=== PATIENT | male | born 1950 | race Caucasian/White ===

== ENCOUNTER 2017-10-03 20:34 | Observation (INO) ==
[2017-10-03] MEDS ORDERED: 0.9 % Sodium Chloride 1,000 ML IVC ONE (21:03)
[2017-10-03] MEDS ORDERED: Ondansetron 4 MG/2 ML VIAL IVP STA (21:09)
--- NOTE | 2017-10-03 21:16 | Emergency Department Note ---
Disposition Clinical Impression: Generalized weakness Nausea & vomiting Qualifiers: Vomiting type: unspecified Vomiting Intractability: unspecified Qualified Code( s): R11.2 - Nausea with vomiting, unspecified Disposition: Admitted As Inpatient Condition: Good Referrals: Cuco Wilson MD [Primary Care Provider] - Forms: ED Satisfaction Letter General Adult HPI - General Chief complaint: ED Nausea/Vomiting/Diarrhea Stated complaint: "dizzy, n/v" Source: EMS Mode of arrival: ambulatory Limitations: no limitations Nursing Notes Reviewed: Yes Vital Signs Reviewed: Yes - History of Present Illness HPI Narrative: Patient has a past medical history of lung cancer with lesions on the liver and pancreas. Patient is currently undergoing chemotherapy with last treatment on Saturday. Patient has been on chemotherapy for 2 years without reaction to chemotherapy agent. Patient also has myasthenia gravis and is unable to take standard medications. He gets IV Ig every 3 months as well as 10 mg of prednisone daily. Patient symptoms started today before lunch. Patient states tolerated breakfast fine. Leg down to take a nap and awoke with nausea, several episodes of nonbloody nonbilious vomiting and dizziness. Dizziness worse with standing and moving. Patient complains of diffuse weakness that is worse in the lower extremities. Patient describes abdominal pain as diffuse cramping but no specific tenderness. No pain with urination cough. Patient is on 2 L of nasal cannula in the emergency department does not wear home oxygen. Patient states he has not been dyspneic or have a cough. No dysuria. No fevers. Pain Scale: 0 - Related Data Home Medications Medication Instructions Recorded Confirmed Citalopram Hydrobromide 40 mg PO DAILY 01/28/17 10/01/17 [Citalopram HBr] Gabapentin [Neurontin] 300 mg PO TID 01/28/17 10/01/17 Metformin HCl [Fortamet] 1,000 mg PO DAILY 01/28/17 10/01/17 Multivit-Min/FA/Lycopen/Lutein 1 each PO DAILY 01/28/17 10/01/17 [Centrum Silver Tablet] SitaGLIPtin [Januvia] 100 mg PO DAILY 01/28/17 10/01/17 predniSONE [PredniSONE] 10 mg PO DAILY 06/10/17 10/01/17 Previous Rx's Medication Instructions Recorded Magic Mouthwash 5 ml PO Q4H PRN #240 ml 08/06/17 Capecitabine [Xeloda] 1 tab PO BID #20 tablet 10/01/17 Ondansetron HCl [Zofran] 4 mg PO Q6H PRN #60 tablet 10/01/17 Allergies Allergy/AdvReac Type Severity Reaction Status Date / Time azathioprine [From Imuran] AdvReac Fatigued Verified 10/01/17 08:37 Review of Systems: CONSTITUTIONAL: No weight loss, fever, chills, weakness or fatigue. HEENT: Eyes: No visual changes. Ears, Nose, Throat: No hearing loss, difficulty talking or unable to swallow. SKIN: No rash or itching. CARDIOVASCULAR: No chest pain, chest pressure or chest discomfort. No palpitations or edema. RESPIRATORY: No shortness of breath, cough or sputum. GASTROINTESTINAL: Nausea and vomiting; No anorexia or diarrhea. No abdominal pain or blood. GENITOURINARY: No burning on urination or hematuria. NEUROLOGICAL: Weakness No headache, dizziness, syncope, paralysis, ataxia, numbness or tingling in the extremities. No change in bowel or bladder control. MUSCULOSKELETAL: No muscle pain, back pain, joint pain or stiffness. Past Medical History - Past Medical History Medical history: Reports: cancer, diabetes, hyperlipidemia, other Surgical history: Reports: colectomy Psychiatric history: Reports: no psych history - Social History Smoking Status: Former smoker Smokeless Tobacco Status: No Alcohol use: Reports: none Drug use: Reports: none Physical Exam General: Well appearing, nontoxic, no acute distress Head: Normocephalic Atraumatic Eyes: PERRL, EOMI ENT: Airway patent, no stridor Neck: supple, no meningismus Chest: Lungs clear to auscultation bilateral Cardiac: Regular rate and rhythm, no murmurs, rubs or gallops Abdomen: soft, nontender, nondistended; no guarding, rebound, or tenderness to percussion Musculoskeletal: Calves symmetric, nontender, no palpable cord Skin: No rash, normal skin tone Neuro: Alert and Oriented to person, place, and time; No focal deficit, CN 2-12 symmetric and intact; muscle strength out of 5 to the upper extremities. Patient's lower extremities 4 out of 5 with generalized weakness. - General General appearance: alert Course - Reevaluation(s) Reevaluation #1: Patient's lab work is unremarkable. The patient's chest x-ray has concern for possible effusion. We will do a CT to rule out empyema. CT scan does not show empyema. Increase in nodule size. Concern for worsening metastatic disease. Patient does have myasthenia. His negative inspiratory force is 60. Patient does not have myasthenia crisis. Patient may benefit from stress dose steroids as he is chronically on steroids. Will discuss with hospital team in regards to further treatment plan. Patient will need to be brought into the hospital for further evaluation of weakness as well as nausea and vomiting. - Consultations Consultation #1: Discussed with hospitalist. Concern for weakness which may be due secondary to chemotherapy, viral illness, myasthenia. The patient has blood cultures and urine culture pending. The hospitalist agrees with stress dose steroids. Hydrocortisone 100 mg once. Patient accepted for admission. Vital Signs Temperature 99.0 F 10/03/17 20:36 Pulse Rate 64 10/03/17 20:36 Respiratory Rate 16 10/03/17 20:36 Blood Pressure 154/98 10/03/17 20:36 O2 Sat by Pulse Oximetry 96 10/03/17 20:36 Temperature 99.0 F 10/03/17 20:36 Pulse Rate 57 10/03/17 22:36 Respiratory Rate 15 10/03/17 22:36 Blood Pressure 167/91 10/03/17 22:36 O2 Sat by Pulse Oximetry 96 10/03/17 22:36 Oxygen Delivery Oxygen Delivery Room Air Medical Decision Making - Lab Data Result diagrams: 10/03/17 21:19 10/03/17 21:19 Lab Results 10/03/17 10/03/17 10/03/17 Range/Units 21:19 21:19 21:19 WBC 7.3 (4.3-11.1) K/mcL RBC 4.20 (4.19-5.50) M/mcL Hgb 13.3 (12.9-16.9) g/dL Hct 40.3 (37.5-50.1) % MCV 96.0 (83.0-100.0) fL MCH 31.7 (28.0-33.3) pg MCHC 33.0 (31.6-35.5) g/dL RDW 12.5 (11.5-14.5) % Plt Count 179 (140-400) K/mcL MPV 10.4 (9.4-12.4) fL Immature Gran % 0.1 (0-4) % Seg Neutrophils % 64.3 % Lymphocytes % 23.5 % Monocytes % 11.7 % Eosinophils % 0.1 % Basophils % 0.3 % Neutrophils # 4.7 (1.6-8.9) K/mcL Lymphocytes # 1.7 (0.6-4.6) K/mcL Monocytes # 0.9 (0.0-1.3) K/mcL Eosinophils # 0.0 (0.0-0.6) K/mcL Basophils # 0.0 (0.0-0.2) K/mcL Sodium 137 (136-145) mEq/L Potassium 4.1 (3.5-5.1) mEq/L Chloride 105 (98-107) mEq/L Carbon Dioxide 23 (23-29) mEq/L BUN 18 (8-23) mg/dL Creatinine 0.86 (0.70-1.30) mg/dL Est GFR ( Amer) > 60 (> 60) Est GFR (Non-Af Amer) > 60 (> 60) BUN/Creatinine Ratio 21 (6-26) Glucose 158 H (70-105) mg/dL Calculated Osmolality 289 (280-300) Lactic Acid 2.0 (0.5-2.2) mmol/L Calcium 9.0 (8.6-10.3) mg/dL Phosphorus 2.5 L (2.7-4.5) mg/dL Magnesium 1.9 (1.6-2.6) mg/dL Total Bilirubin 0.7 (0.3-1.0) mg/dL Direct Bilirubin 0.2 (0.0-0.2) mg/dL Indirect Bilirubin 0.5 (0.0-1.2) mg/dL AST 24 (13-39) Units/L ALT 26 (7-52) Units/L Alkaline Phosphatase 100 (34-104) Units/L Troponin I (< 0.04) ng/mL Serum Total Protein 6.6 (6.4-8.9) g/dL Albumin 3.6 (3.5-5.7) g/dL Globulin 3.0 (2.4-3.5) g/dL Albumin/Globulin Ratio 1.2 (1.1-2.2) Urine Color (Yellow) Urine Clarity (Clear) Urine pH (5.0-8.0) pH Units Ur Specific [place] (1.010-1.025) Urine Protein (Neg-Trace) mg/dL Urine Glucose (UA) (Normal) mg/dL Urine Ketones (Negative) mg/dL Urine Blood (Negative) Urine Nitrite (Negative) Urine Bilirubin (Negative) Urine Urobilinogen (Normal) mg/dL Ur Leukocyte Esterase (Negative) Ur Culture Indicated? (NO) 10/03/17 10/03/17 Range/Units 21:19 21:43 WBC (4.3-11.1) K/mcL RBC (4.19-5.50) M/mcL Hgb (12.9-16.9) g/dL Hct (37.5-50.1) % MCV (83.0-100.0) fL MCH (28.0-33.3) pg MCHC (31.6-35.5) g/dL RDW (11.5-14.5) % Plt Count (140-400) K/mcL MPV (9.4-12.4) fL Immature Gran % (0-4) % Seg Neutrophils % % Lymphocytes % % Monocytes % % Eosinophils % % Basophils % % Neutrophils # (1.6-8.9) K/mcL Lymphocytes # (0.6-4.6) K/mcL Monocytes # (0.0-1.3) K/mcL Eosinophils # (0.0-0.6) K/mcL Basophils # (0.0-0.2) K/mcL Sodium (136-145) mEq/L Potassium (3.5-5.1) mEq/L Chloride (98-107) mEq/L Carbon Dioxide (23-29) mEq/L BUN (8-23) mg/dL Creatinine (0.70-1.30) mg/dL Est GFR ( Amer) (> 60) Est GFR (Non-Af Amer) (> 60) BUN/Creatinine Ratio (6-26) Glucose (70-105) mg/dL Calculated Osmolality (280-300) Lactic Acid (0.5-2.2) mmol/L Calcium (8.6-10.3) mg/dL Phosphorus (2.7-4.5) mg/dL Magnesium (1.6-2.6) mg/dL Total Bilirubin (0.3-1.0) mg/dL Direct Bilirubin (0.0-0.2) mg/dL Indirect Bilirubin (0.0-1.2) mg/dL AST (13-39) Units/L ALT (7-52) Units/L Alkaline Phosphatase (34-104) Units/L Troponin I < 0.03 (< 0.04) ng/mL Serum Total Protein (6.4-8.9) g/dL Albumin (3.5-5.7) g/dL Globulin (2.4-3.5) g/dL Albumin/Globulin Ratio (1.1-2.2) Urine Color Yellow (Yellow) Urine Clarity Clear (Clear) Urine pH 7.5 (5.0-8.0) pH Units Ur Specific [place] 1.016 (1.010-1.025) Urine Protein Negative (Neg-Trace) mg/dL Urine Glucose (UA) 250 H (Normal) mg/dL Urine Ketones Negative (Negative) mg/dL Urine Blood Negative (Negative) Urine Nitrite Negative (Negative) Urine Bilirubin Negative (Negative) Urine Urobilinogen Normal (Normal) mg/dL Ur Leukocyte Esterase Negative (Negative) Ur Culture Indicated? NO (NO)
[2017-10-03 21:30] LABS: Basophils % 0.3 %; Eosinophils % 0.1 %; Hematocrit 40.3 % (37.5-50.1); Hemoglobin 13.3 g/dL (12.9-16.9); Immature Granulocytes % 0.1 % (0-4); Lymphocytes # 1.7 K/mcL (0.6-4.6); Lymphocytes % 23.5 %; Mean Corpuscular Hemoglobin 31.7 pg (28.0-33.3); Mean Platelet Volume 10.4 fL (9.4-12.4); Monocytes # 0.9 K/mcL (0.0-1.3); Monocytes % 11.7 %; Neutrophils # 4.7 K/mcL (1.6-8.9); Platelet Count 179 K/mcL (140-400); Red Cell Distribution Width 12.5 % (11.5-14.5); Segmented Neutrophils % 64.3 %
[2017-10-03 21:45] LABS: Alanine Aminotransferase 26 Units/L (7-52); Albumin 3.6 g/dL (3.5-5.7); Albumin/Globulin Ratio 1.2 (1.1-2.2); Alkaline Phosphatase 100 Units/L (34-104); Aspartate Amino Transferase 24 Units/L (13-39); BUN/Creatinine Ratio 21 (6-26); Bilirubin,Direct 0.2 mg/dL (0.0-0.2); Bilirubin,Indirect 0.5 mg/dL (0.0-1.2); Bilirubin,Total 0.7 mg/dL (0.3-1.0); Blood Urea Nitrogen 18 mg/dL (8-23); Carbon Dioxide 23 mEq/L (23-29); Chloride 105 mEq/L (98-107); Glucose 158 mg/dL (70-105); Magnesium 1.9 mg/dL (1.6-2.6); Osmolality,Calculated 289 (280-300); Phosphorous 2.5 mg/dL (2.7-4.5); Potassium 4.1 mEq/L (3.5-5.1); Sodium 137 mEq/L (136-145); Total Protein 6.6 g/dL (6.4-8.9); eGFR For African Americans > 60 (> 60); eGFR For Non-African Americans > 60 (> 60)
[2017-10-03 21:52] LABS: Bilirubin,Urine Negative (Negative); Blood,Urine Negative (Negative); Clarity,Urine Clear (Clear); Color,Urine Yellow (Yellow); Glucose,Urine (UA) 250 mg/dL (Normal); Ketones,Urine Negative (Negative); Leukocyte Esterase,Urine Negative (Negative); Nitrite,Urine Negative (Negative); PH,Urine 7.5 pH Units (5.0-8.0); Protein,Urine Negative (Neg-Trace); Specific Gravity,Urine 1.016 (1.010-1.025); Urobilinogen,Urine Normal (Normal)
[2017-10-04] MEDS ORDERED: 0.9 % Sodium Chloride 1,000 ML IVC SCH
[2017-10-04] MEDS ORDERED: Hydrocortisone Sodium Succ 100 MG/2 ML VIAL IVP STA
--- NOTE | 2017-10-04 00:11 | Emergency Department Note ---
START Narrative - START START: I examined this patient and my medical decision-making was reviewed with the Resident Physician. I agree with the documented findings, disposition and treatment plan as described except to the extent set forth below. findings consistent with dizziness. No evidence of reduced lung volumes on and I asked testing. CT scan shows ongoing metastatic disease. We will admit to the hospital giving answer for lower extremity weakness. Cannot exclude early mycin in crisis. The patient has multiple allergies. Defer further testing and steroid administration versus immunoglobulin therapy to hospitalist team.
[2017-10-04] MEDS ORDERED: Naloxone 0.4 MG/ML INJ IVP PRN (03:20)
--- NOTE | 2017-10-04 04:19 | Internal Med History&Physical ---
<Kurtis Trent - Last Filed: 10/04/17 04:17> Date of Encounter: 10/04/17 Time of Encounter: 03:00 Assessment and Plan (1) Generalized weakness Current visit: Yes Status: Acute Myasthenic crisis vs adrenal insufficiency vs malignancy-related see associated diagnoses for plan (2) Type 2 diabetes mellitus Current visit: Yes Status: Chronic Controlled Low dose sliding scale Qualifiers: Diabetes mellitus complication status: without complication Diabetes mellitus ocean transportation intermediary insulin use: without ocean transportation intermediary use Qualified Code(s): E11.9 - Type 2 diabetes mellitus without complications (3) Myasthenia gravis Current visit: Yes Status: Chronic Pt receives IVIg q3 mo Weakness could potentially be related to myasthenic crisis Will monitor negative inspiratory force qShift If decrease is noted, threshold for intubation is low Patient felt improvement following steroid administration, continue solu-cortef (4) 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 Smith is a 66 year old male presenting with dizziness and nausea with two episodes of vomiting. Initial dizziness started this morning and was associated with tremulousness. Patient initially attributed this to his blood sugar and ate a meal shortly afterward, and his symptoms abated. Later in the day, around 6 pm, the dizziness returned. He then became nauseous and vomited. Patient states that the vomitus was food only without blood. Shortly afterward, he vomited again, this time he states that it was bilious. He then began to experience weakness so severe that he could not raise himself off the ground. It was at this point that he called EMS and was brought to the ER. He received a dose of solumedrol and 1L of normal saline, and he reports vast improvement in symptoms. He denies any SOB, CP, palpitations, and diarrhea. Patient does have metastatic rectal cancer, with mets to the lungs and liver, which is being treated with xeloda. Last dose was on Saturday, and the patient says that he has been taking it for years. Other past medical history includes diabetes mellitus type II and myasthenia gravis, which is being treated with IVIG q3 mo. Past Med Surg Social Fam HX - Past Medical History Medical history: cancer, diabetes, hyperlipidemia, other Psychiatric history: no psych history - Past Surgical History Surgical History: colectomy - Social History Smoking Status: Former smoker Smokeless Tobacco Status: No Alcohol use: none Drug use: none Internal Medicine - H&P: Meds Citalopram Hydrobromide [Citalopram HBr] 40 mg PO DAILY 01/28/17 [History] Gabapentin [Neurontin] 300 mg PO TID 01/28/17 [History] Metformin HCl [Fortamet] 1,000 mg PO DAILY 01/28/17 [History] Multivit-Min/FA/Lycopen/Lutein [Centrum Silver Tablet] 1 each PO DAILY 01/28/17 [History] SitaGLIPtin [Januvia] 100 mg PO DAILY 01/28/17 [History] predniSONE [PredniSONE] 10 mg PO DAILY 06/10/17 [History] Magic Mouthwash 5 ml PO Q4H PRN #240 ml 08/06/17 [Rx] Capecitabine [Xeloda] 1 tab PO BID #20 tablet 10/01/17 [Rx] Ondansetron HCl [Zofran] 4 mg PO Q6H PRN #60 tablet 10/01/17 [Rx] 3 Allergy/AdvReac Type Severity Reaction Status Date / Time azathioprine [From Imuran] AdvReac Fatigued Verified 10/01/17 08:37 All Systems PM: A 10-system review of systems was performed and is negative for pertinent findings except as documented above in the HPI. Review of systems: as per HPI - Constitutional Vitals: Temp Pulse Resp BP Pulse Ox 97.4 F L 63 15 145/79 96 10/04/17 02:28 10/04/17 02:28 10/04/17 02:28 10/04/17 02:28 10/04/17 02:28 General appearance: Present: cooperative, A&O X 3, pleasant, answers questions appropriately - Head Head exam: Present: atraumatic, normal inspection, normocephalic - ENT ENT exam: Present: mucous membranes moist - Neck Neck exam general surgery: Present: trachea midline - Respiratory Respiratory exam: Present: CTAB. Absent: accessory muscle use, respiratory distress, stridor, wheezes - Cardiovascular Cardiovascular exam: Present: RRR, +S1, +S2 - GI/Abdominal GI/Abdominal exam: Present: soft. Absent: tenderness, no peritoneal signs - Extremities Exam Extremities exam: Absent: pedal edema - Neurological Exam Neurological exam: Present: strengths equal and symetr throughout. Absent: motor sensory deficit - Psychiatric Psychiatric exam: Present: normal affect, normal mood. Absent: agitated, anxious - Skin Skin exam: Present: dry, warm Internal Med - H&P Results - Labs CBC & Chem 7: 10/03/17 21:19 10/03/17 21:19 <Oswaldo Blackwell - Last Filed: 10/04/17 06:42> Date of Encounter: 10/04/17 Time of Encounter: 06:27 Past Med Surg Social Fam HX - Past Medical History Attestation: Yes The following information was validated with the patient. Source: patient, old records reviewed - Social History Current living situation: Home, With Family Activity Level: Independent ambulation Recent Out of Country Travel Within the Last 8 Weeks: No - Additional Family History Additional family history: No FH adrenal insufficieny - Constitutional Constitutional: fatigue, weakness, no chills, no fever(s), no night sweats - EENT Eyes: no blurry vision, no change in vision, no diplopia Ears: no ear pain, no tinnitus Nose, mouth and throat: no sinus pressure, no sore throat - Cardiovascular Cardiovascular ROS IM: lightheadedness, no chest pain, no dyspnea, no dyspnea on exertion, no palpitations - Respiratory Respiratory: no cough, no dyspnea, no hemoptysis, no chest congestion, no excessive phlegm production, no change in phlegm color - Gastrointestinal Gastrointestinal: diarrhea, nausea, vomiting, no abdominal pain, no hematemesis , no hematochezia, no melena - Genitourinary Genitourinary ROS male: no dysuria, no flank pain, no hematuria - Musculoskeletal Musculoskeletal ROS IM: muscle cramps, muscle weakness, no back pain, no myalgias - Integumentary Integumentary IM: no rash, no jaundice - Neurological Neurological ROS: dizziness, weakness, no focal weakness, no headache(s), no vertigo - Psychiatric Psychiatric: no anxiety, no depression - Endocrine Endocrine IM: no polydipsia, no polyuria - Hematologic/Lymphatic Hematologic/Lymphatic: easy bruising, no lymphadenopathy - Allergic/Immunologic Allergic/Immunologic: no wheezing, no GI upset with certain foods - Constitutional Vitals: Temp Pulse Resp BP Pulse Ox 97.4 F L 63 15 145/79 96 10/04/17 02:28 10/04/17 02:28 10/04/17 02:28 10/04/17 02:28 10/04/17 02:28 General appearance: Present: cooperative, A&O X 3, pleasant, answers questions appropriately Exam: states feels "much better" after Solumedrol and IVF - Head Head exam: Present: normal inspection - Eye Eye exam: Present: EOMI, PERRL. Absent: scleral icterus - ENT ENT exam: Present: mucous membranes dry, normal exam - Neck Neck exam general surgery: Present: full ROM, supple. Absent: tenderness - Respiratory Respiratory exam: Present: CTAB. Absent: accessory muscle use, rales, respiratory distress, stridor, wheezes Additional comments: no sign of respiratory difficulty - Cardiovascular Cardiovascular exam: Present: RRR, +S1, +S2 - GI/Abdominal GI/Abdominal exam: Present: normal bowel sounds, soft. Absent: hepatomegaly, mass, splenomegaly, tenderness - Extremities Exam Extremities exam: Present: warm. Absent: calf tenderness, joint swelling - Back Exam Back exam: Absent: CVA tenderness (L), CVA tenderness (R) - Neurological Exam Neurological exam: Present: alert, oriented X3, no focal deficits - Psychiatric Psychiatric exam: Present: normal affect, normal mood - Skin Skin exam: Present: dry, warm. Absent: rash Internal Med - H&P Results - Labs CBC & Chem 7: 10/04/17 05:57 10/03/17 21:19 Labs: Short CBC 10/04/17 Range/Units 05:57 WBC 7.2 (4.3-11.1) K/mcL Hgb 12.9 (12.9-16.9) g/dL Hct 38.2 (37.5-50.1) % Plt Count 145 (140-400) K/mcL - EKG Data -: EKG Interpreted by Myself - EKG Data Prior EKG available for review: no EKG comments: 10/04/17 06:31 NSR; no acute changes - Attending Attestation I discussed the patient KAKE, PMH, ROS, lab data, and exam findings with Dr. Trent. I then saw and examined patient independently as well. I met with patient and his . He denies any fevers or infectious symptoms. He developed sudden N/V and weakness last night. Due to near syncope after his nausea and vomiting episodes, he came to ER for evaluation. He received IVF bolus and Solumedrol with significant relief of symptoms. He was then admitted to hospitalist service for concerns of Myasthenia flare. He feels almost back to baseline now. I do not suspect he is having a Myasthenia flare, but, rather , a case of adrenal insufficiency. He is on Prednisone 10 mg daily for his Mysathenia. While he has not missed any doses, he's been under recent undue stress, mostly from his recent chemotherapy he's had. I suspect the added physical stress his body has been subjected to may have been enough to lead to a state of adrenal insufficiency, especially given the quick response he had with IVF and Solumedrol. As such, we'll place him on hydrocortisone and IVF for now. We'll ask neurology and HEM/ONC to see him in consult. We will also ask respiratory therapy to monitor his nif (negative inspiratory force) to monitor for sign of respiratory fatigue. Other than my above comments and noted exam findings, I agree with Dr. Trent' s assessment and plan.
[2017-10-04] MEDS ORDERED: Ondansetron ODT 4 MG TAB.RAPDIS SL PRN (04:44)
[2017-10-04] MEDS ORDERED: Dextrose Gel 15 GM/37.5 ML TUBE PO PRN ×2 (05:33)
[2017-10-04] MEDS ORDERED: D5% in Water 1,000 ML IVC PRN (05:33)
[2017-10-04] MEDS ORDERED: *HR* Dextrose 50 % in Water (Syg) 50 ML SYRINGE IVP PRN (05:33)
[2017-10-04] MEDS: *HR* Heparin 5,000 UNIT/ML VIAL SQ SCH ×2 (05:58→17:45)
[2017-10-04 06:11] LABS: Hematocrit 38.2 % (37.5-50.1); Hemoglobin 12.9 g/dL (12.9-16.9); Mean Corpuscular HGB Conc 33.8 g/dL (31.6-35.5); Mean Corpuscular Hemoglobin 32.7 pg (28.0-33.3); Mean Corpuscular Volume 96.7 fL (83.0-100.0); Mean Platelet Volume 9.8 fL (9.4-12.4); Platelet Count 145 K/mcL (140-400); Red Blood Count 3.95 M/mcL (4.19-5.50); Red Cell Distribution Width 12.5 % (11.5-14.5)
[2017-10-04 06:34] LABS: BUN/Creatinine Ratio 19 (6-26); Blood Urea Nitrogen 17 mg/dL (8-23); Calcium 8.6 mg/dL (8.6-10.3); Carbon Dioxide 29 mEq/L (23-29); Chloride 106 mEq/L (98-107); Glucose 175 mg/dL (70-105); Osmolality,Calculated 296 (280-300); Potassium 4.3 mEq/L (3.5-5.1); Sodium 140 mEq/L (136-145); eGFR For African Americans > 60 (> 60); eGFR For Non-African Americans > 60 (> 60)
--- NOTE | 2017-10-04 09:22 | Neurology - Consult Note ---
Addendum entered and electronically signed by Maribel Richmond MD 10/04/17 13:42: Patient seen and examined. Case discussed with Dr. Jerel Macedo and i agree with his history taking, physical examination and assessment and plan. Patient is known to me and has history of steroid dependent myasthenia Gravis, s/p thymectomy, s/p IVig therapy every 3 months. Has been doing well in the last few years with IVig treatment every three months and has been able to take only small maintenance dose of prednisone 10mg QOD and lately daily. He also has metastatic rectal cancer s/p chemotherapy last one On Saturday. He developed malaise in the last few days but no fever. then on the day of admission he developed nause and vomiting and then extreme fatigue and weakness. No fever, no SOB no diplopia and no speech difficulty. He was started IV solu-cortef and responded well and symptoms improved significantly. Agree with current regimen and would like to continue on prednisone 10mg daily without change. At this time, treatment is largely medical and supportive. He has metastatic rectal cancer and had chemotherapy which may also contribute to the weakness. OVerall speaking symptoms not consistent with MG crisis. Please continue medical and supportive care. He will follow up with me in neurology clinic in few weeks. Thank you very much for the consultation Original Note: <Jerel Macedo G - Last Filed: 10/04/17 10:16> Date of Encounter: 10/04/17 Time of Encounter: 09:18 Assessment and Plan (1) Generalized weakness Current Visit: Yes Status: Acute Patient's generalized weakness does not appear to be consistent with myasthenia crisis. He does not have any respiratory or bulbar weakness. Negative inspiratory force measurements have been excellent. Patient's symptoms may be related to adrenal insufficiency in the setting of chronic steroid use and underlying viral illness. This is supported by the fact that the patient feels much improved with stress dose steroids. Recommend close monitoring of the patient's negative inspiratory force. Avoid medications that may precipitate a myasthenia crisis including neuromuscular blocking agents, aminoglycosides, 4 quinolones, clindamycin, vancomycin, beta blockers. Patient should be slowly tapered down back to his baseline dose of prednisone 10 mg daily while monitoring for symptoms which will likely to be continued as an outpatient. Patient should continue to follow-up as scheduled in the outpatient neurology clinic. (2) Myasthenia gravis Current Visit: Yes Status: Chronic As above. (3) 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 Current Visit: Yes Status: Chronic History of Present Illness Chief complaint: Weakness HPI: Mr. Smith is a 66 year old male with history of metastatic rectal cancer and myasthenia gravis who presents with weakness. Patient states that he had not been feeling well for several days leading up to yesterday when he became extremely weak where he could not get up off the floor. He reports episodes of vomiting and dry heaves. He denies fever, chills. He states he has never had anything like this before. He denies any new medications, missing any of his medications including reporting that he takes his prednisone 10 mg daily as prescribed. He states that his voice was a little softer than normal prior to arrival but otherwise did not have any difficulty swallowing, shortness of breath, inability to take a deep breath. Past Med Surg Social Fam HX - Past Medical History Medical history: cancer, diabetes, hyperlipidemia, other Psychiatric history: no psych history - Past Surgical History Surgical History: colectomy - Social History Smoking Status: Former smoker Smokeless Tobacco Status: No Alcohol use: none Drug use: none Medications and Allergies Citalopram Hydrobromide [Citalopram HBr] 40 mg PO DAILY 01/28/17 [History] Gabapentin [Neurontin] 300 mg PO TID 01/28/17 [History] Metformin HCl [Fortamet] 1,000 mg PO DAILY 01/28/17 [History] Multivit-Min/FA/Lycopen/Lutein [Centrum Silver Tablet] 1 each PO DAILY 01/28/17 [History] SitaGLIPtin [Januvia] 100 mg PO DAILY 01/28/17 [History] Capecitabine [Xeloda] 1 tab PO BID #20 tablet 10/01/17 [Rx] Ondansetron HCl [Zofran] 4 mg PO Q6H PRN #60 tablet 10/01/17 [Rx] 3 Allergy/AdvReac Type Severity Reaction Status Date / Time azathioprine [From Imuran] AdvReac Fatigued Verified 10/01/17 08:37 All Systems: A 10-system review of systems was performed and is negative for pertinent findings except as documented above in the HPI. Physical Examination - Vital Signs Vital Signs: Initial Vital Signs Temp Pulse Resp BP Pulse Ox 99.0 F 64 16 154/98 96 01/18/18 20:36 10/03/17 20:36 10/03/17 20:36 10/03/17 20:36 10/03/17 20:36 - Constitutional General appearance: comfortable - Neurologic Sensorimotor examination: intact Motor examination - right side: 4/5: quadriceps, plantarflexion, 5/5: biceps, triceps, collections analyst Motor examination - left side: 4/5: quadriceps, plantarflexion, 5/5: biceps, triceps, collections analyst Detailed sensory examination: intact Reflexes: Biceps: 0, Brachioradialis: 0, Patella: 0, Achilles: 0 Mental Status Examination: awake, alert, oriented to person, oriented to place, oriented to time, follows commands appropriately, answers questions appropriately, no agnosia, no aphasia, no aproxia Cranial nerve examination: PERRL, EOMI, sensory to face intact, mastication intact, no facial asymmetry is present, no dysarthria, soft palate elevates bilaterally upon phonation, gag reflex intact, tongue protrudes midline, no atrophy or facial fasiculations present Results - Laboratory Findings CBC and BMP: 10/04/17 05:57 10/04/17 05:57 Abnormal lab findings: Abnormal lab results RBC 3.95 M/mcL (4.19-5.50) L 10/04/17 05:57 Glucose 175 mg/dL (70-105) H 10/04/17 05:57 POC Glucose 171 (58-89) H 10/04/17 07:37 Phosphorus 2.5 mg/dL (2.7-4.5) L 10/03/17 21:19 Urine Glucose (UA) 250 mg/dL (Normal) H 10/03/17 21:43 Consult Discharge Plan - Plan Referrals: Cuco Wilson MD [Primary Care Provider] - <YiEstefaniaharmony - Last Filed: 10/04/17 13:41> Date of Encounter: 10/04/17 History of Present Illness HPI: Mr. Smith is a 66 year old male All Systems: A 10-system review of systems was performed and is negative for pertinent findings except as documented above in the HPI. Physical Examination - Vital Signs Vital Signs: Initial Vital Signs Temp Pulse Resp BP Pulse Ox 99.0 F 64 16 154/98 96 10/03/17 20:36 10/03/17 20:36 10/03/17 20:36 10/03/17 20:36 10/03/17 20:36 Results - Laboratory Findings CBC and BMP: 10/04/17 05:57 10/04/17 05:57 Abnormal lab findings: Abnormal lab results RBC 3.95 M/mcL (4.19-5.50) L 10/04/17 05:57 Glucose 175 mg/dL (70-105) H 10/04/17 05:57 POC Glucose 191 (58-89) H 10/04/17 11:24 Phosphorus 2.5 mg/dL (2.7-4.5) L 10/03/17 21:19 Urine Glucose (UA) 250 mg/dL (Normal) H 10/03/17 21:43
[2017-10-04] MEDS: Insulin LISPRO 300 UNITS/3 ML VIAL SQ SCH ×5 (09:52→21:19)
[2017-10-04] MEDS: Hydrocortisone Sodium Succ 100 MG/2 ML VIAL IVP SCH ×3 (09:53→23:47)
--- NOTE | 2017-10-04 14:53 | Oncology Inp Consult Note ---
<Kalyani Draper - Last Filed: 10/04/17 19:26> Date of Encounter: 10/04/17 Time of Encounter: 14:50 Assessment and Plan (1) Generalized weakness Status: Acute Assessment and plan: 1. Generalized Weakness. Reviewed Neurology consultation. Symptoms may be related to adrenal insufficiency in the setting of chronic steroid use and underlying viral illness. He also reports he has been under increased physical and mental stress lately due to moving from his family home to downsize to a mobile home. The fact that the patient feels much improved with stress dose steroids helps to support this theory and is reassuring. 2. Metastatic rectal cancer with bilateral lung nodules. Cycle 2 on 10/01/16 of Avastin, Oxaliplatin and Xeloda, treatment summary noted in HPI. According to patient, he tolerated treatments quite well with reporting only minor weakness/ fatigue following treatment which resolves within a few days. His presentation is likely unrelated to chemotherapy as he has received previous treatments in past with no related side effects. He does not report any s/s of chemotherapy toxicity and denies N/V/D related to treatment, HTN, s/ s bleeding, neuropathy/parasthesias, symptoms r/t hand foot syndrome, SOB, bradycardia, heart palpitations or chest pain. His CBC and CMP are mainly unremarkable. Will hold Xeloda at this time. He is planned for on treatment visit with Dr. Linares on October 22 - Data of Consult Patient: known to practice within the last 3 years Consult date: 10/04/17 Requesting Physician: Ryan Paz Primary Care Provider: Cuco Wilson MD Family Provider: Cuco Wilson MD - Consult Narrative Reason for consult: Metastatic rectal cancer with bilateral lung nodules History of present illness: Mr. Smith is a 66 year old male who presented to the ER with complaints of dizziness, extreme weakness, nausea and two episodes of vomiting. He notified EMS and was brought to [facility]. He received a dose of solumedrol and 1L of normal saline, and he reports vast improvement in symptoms. He was admitted for further work up of symptoms to establish Myasthenic crisis vs adrenal insufficiency vs malignancy-related. Mr. Smith is a patient of the [facility] and a patient of Dr. Linares. He has Metastatic rectal cancer with bilateral lung nodules, date of original diagnosis in April 2013. He has had recent progression of disease after a treatment break since November 2016 and has started treatment with oxaliplatin and Avastin and Xeloda. He recently underwent cycle 2 on 10/01/17 Chemotherapy regimen Cycle repeated every 3 weeks Oxaliplatin 60 mg/m IV day 1 Avastin 7.5 mg per KG IV day 1 Reduced Xeloda to 500 mg 1 by mouth twice a day for 10 days with 11 days off Cycle 1 on 09/10/2017, cycle 2 today on 10/01/2017 Past Med Surg Social Fam HX - Past Medical History Medical history: cancer, diabetes, hyperlipidemia, other Psychiatric history: no psych history - Past Surgical History Surgical History: colectomy - Social History Smoking Status: Former smoker Smokeless Tobacco Status: No Alcohol use: none Drug use: none Medications and Allergies Citalopram Hydrobromide [Citalopram HBr] 40 mg PO DAILY 01/28/17 [History] Gabapentin [Neurontin] 300 mg PO TID 01/28/17 [History] Metformin HCl [Fortamet] 1,000 mg PO DAILY 01/28/17 [History] Multivit-Min/FA/Lycopen/Lutein [Centrum Silver Tablet] 1 each PO DAILY 01/28/17 [History] SitaGLIPtin [Januvia] 100 mg PO DAILY 01/28/17 [History] Capecitabine [Xeloda] 1 tab PO BID #20 tablet 10/01/17 [Rx] Ondansetron HCl [Zofran] 4 mg PO Q6H PRN #60 tablet 10/01/17 [Rx] 3 Allergy/AdvReac Type Severity Reaction Status Date / Time azathioprine [From Imuran] AdvReac Fatigued Verified 10/01/17 08:37 Constitutional: Present: fatigue, weakness. Absent: anorexia, fever(s), headache(s), weight loss Eyes: Absent: change in vision, diplopia Nose, mouth and throat: Absent: dysphagia Cardiovascular: Absent: chest pain, edema, irregular heart rhythm, palpitations Respiratory: Absent: cough, dyspnea Gastrointestinal: Absent: abdominal pain, change in bowel habits, nausea, vomiting Additional comments: denies dysuria. or hematuria Musculoskeletal: Present: muscle weakness. Absent: numbness, tingling Integumentary: Absent: wounds Neurological: Present: disequilibrium. Absent: numbness, syncope, tingling Hematologic/Lymphatic: Absent: easy bleeding, lymphadenopathy Oncology - Exam - Constitutional Vitals: Temp Pulse Resp BP Pulse Ox 98.1 F 75 20 149/79 95 10/04/17 11:30 10/04/17 11:30 10/04/17 11:30 10/04/17 11:30 10/04/17 11:30 General appearance: cooperative, no acute distress, no febrile - Head Head exam: Present: atraumatic - Respiratory Respiratory exam: Present: CTAB - Cardiovascular Cardiovascular exam: Present: RRR, +S1, +S2 - GI/Abdominal GI/Abdominal exam: Present: normal bowel sounds, soft. Absent: tenderness - Extremities Exam Extremities exam: Absent: calf tenderness, pedal edema - Neurological Exam Neurological exam: Present: alert, oriented X3, no focal deficits, strengths equal and symetr throughout - Psychiatric Psychiatric exam: Present: normal affect, normal mood - Skin Skin exam: Present: normal color, warm Oncology - Results Labs: Short CBC 10/04/17 Range/Units 05:57 WBC 7.2 (4.3-11.1) K/mcL Hgb 12.9 (12.9-16.9) g/dL Hct 38.2 (37.5-50.1) % Plt Count 145 (140-400) K/mcL BMP 10/04/17 05:57 Sodium 140 Potassium 4.3 Chloride 106 Carbon Dioxide 29 BUN 17 Creatinine 0.88 Glucose 175 H Calcium 8.6 Consult Discharge Plan - Plan Referrals: Cuco Wilson MD [Primary Care Provider] - <Matias Linares S - Last Filed: 10/07/17 09:26> Date of Encounter: 10/07/17 - Data of Consult Requesting Physician: Ryan aPz Primary Care Provider: Cuco Wilson MD Family Provider: Cuco Wilson MD Oncology - Exam - Constitutional Vitals: Temp Pulse Resp BP Pulse Ox 98.6 F 60 16 120/82 94 10/04/17 15:00 10/04/17 15:00 10/04/17 15:00 10/04/17 15:00 10/04/17 15:00 Oncology - Results Labs: Short CBC 10/04/17 Range/Units 05:57 WBC 7.2 (4.3-11.1) K/mcL Hgb 12.9 (12.9-16.9) g/dL Hct 38.2 (37.5-50.1) % Plt Count 145 (140-400) K/mcL [facility] 10/04/17 05:57 Sodium 140 Potassium 4.3 Chloride 106 Carbon Dioxide 29 BUN 17 Creatinine 0.88 Glucose 175 H Calcium 8.6 - Attending Attestation Metastatic rectal cancer with lung nodules. CEA went up to 40. He restarted chemotherapy 2016 and cycle 2 on 10/01/2016. His been getting very low dose on the chemotherapy Oxaliplatin 60 mg/m she is roughly half the standard dose. Also Xeloda at a very low dose at 500 mg by mouth daily day 1 through 10 with 11 days off. Reason for admission is profound fatigue and hypotension His profound fatigue is most likely secondary to adrenal insufficiency/steroid dependence. Will hold Xeloda until he improves His symptoms improved with supplemental steroids. Blood pressure improved to 137/82.
--- NOTE | 2017-10-04 17:40 | Event Note ---
Date of Encounter: 10/04/17 Time of Encounter: 17:23 Patient presented for acute onset of weakness, nausea and vomiting, light headedness. He checked glucose at home during that time and was in the 250s. He denied fevers/chills. Has MG and also rectal cancer with mets. On Prednisone 10 mg daily at home. VS: reviewed; unremarkable. Physical exam: No acute distress, AAOx3, CVS: RRR, lungs: CTAB, Ext: no edema, musc: strength normal CT chest multiple pulmonary nodules that show progression compared to prior imaging Flu: negative Glucose: 158-254 1. Generalized weakness 2. N/V 3. Type 2 DM 4. Myasthenia Gravis 5. Rectal Cancer with mets to lung and liver Weakness differentials initially including Myasthenia crisis vs adrenal insufficiency vs malignancy-related. Possibly involved with GI symptoms is diabetic gastroparesis. This would be supportive since he recently started home Prednisone. He states glucose at home is usually <100 and lately has been elevated. This could also be in the setting of acute viral illness. Neurology has evaluated patient and findings are not consistent with MG exacerbation. Oncology seeing patient as well, recommendations appreciated. - Consider Reglan if N/V persists - Follow-up Oncology recommendations. - Low dose sliding scale, - Will need to add basal insulin while getting stress dose steroids. Based on his weight, Levemir 18-22 units HS may be good starting point with 5 units with meals. Adjust insulin accordingly - Continue Solu-Cortef and taper will glycemic control as above.
[2017-10-04] MEDS: Insulin DETEMIR 100 UNIT/ML X5UNITS SQ SCH (21:20)
[2017-10-05 06:05] LABS: Basophils % 0.1 %; Hematocrit 37.7 % (37.5-50.1); Hemoglobin 12.8 g/dL (12.9-16.9); Immature Granulocytes % 0.2 % (0-4); Lymphocytes # 1.3 K/mcL (0.6-4.6); Lymphocytes % 15.3 %; Mean Corpuscular Hemoglobin 32.5 pg (28.0-33.3); Mean Corpuscular Volume 95.7 fL (83.0-100.0); Mean Platelet Volume 10.6 fL (9.4-12.4); Monocytes # 0.5 K/mcL (0.0-1.3); Monocytes % 6.2 %; Neutrophils # 6.5 K/mcL (1.6-8.9); Platelet Count 159 K/mcL (140-400); Red Blood Count 3.94 M/mcL (4.19-5.50); Red Cell Distribution Width 12.2 % (11.5-14.5); Segmented Neutrophils % 78.2 %
[2017-10-05] MEDS: *HR* Heparin 5,000 UNIT/ML VIAL SQ SCH ×2 (06:05→17:15)
[2017-10-05 06:18] LABS: BUN/Creatinine Ratio 27 (6-26); Blood Urea Nitrogen 21 mg/dL (8-23); Calcium 8.5 mg/dL (8.6-10.3); Carbon Dioxide 27 mEq/L (23-29); Chloride 106 mEq/L (98-107); Glucose 160 mg/dL (70-105); Osmolality,Calculated 290 (280-300); Potassium 4.2 mEq/L (3.5-5.1); Sodium 137 mEq/L (136-145); eGFR For African Americans > 60 (> 60); eGFR For Non-African Americans > 60 (> 60)
[2017-10-05] MEDS: Insulin LISPRO 300 UNITS/3 ML VIAL SQ SCH ×7 (08:58→21:16)
[2017-10-05] MEDS: Hydrocortisone Sodium Succ 100 MG/2 ML VIAL IVP SCH ×2 (08:59→16:11)
--- NOTE | 2017-10-05 10:07 | Electrocardiograph Report ---
[place] [id number] Test Date: 2017-10-03 Pat Name: Thanh Smith Department: 102 Room: [facility] Gender: M Medical Field Representative: : 1950 Requested By: Abisai Welch Order Number: [id number] Reading MD: Cheng Dubon DO Measurements Intervals [place] Rate: 56 P: -6 ID: [id number] QRS: 36 QRSD: 90 T: 23 QT: 435 QTc: 427 Interpretive Statements SINUS BRADYCARDIA WITH FIRST DEGREE AV BLOCK Electronically Signed On 10-05-2017 10:06:04 EST by Cheng Dubon DO
--- NOTE | 2017-10-05 16:32 | Internal Med Progress Note ---
Date of Encounter: 10/05/17 Time of Encounter: 16:30 - Assessment and plan (1) Generalized weakness Current Visit: Yes Status: Acute Assessment and plan: Likely from adrenal insufficiency. Oncology and Neurology evaluated patient and is less likely from myesthenia gravis or metastatic disease. Continue to taper Solu Cortef. (2) Type 2 diabetes mellitus Current Visit: Yes Status: Chronic Assessment and plan: Metformin held while admitted Lantus 18 units HS with 5 units humalog with meals and insulin sliding scale Goal glucose <180 Qualifiers: Diabetes mellitus complication status: without complication Diabetes mellitus retirement insulin use: without principal statistical programmer use Qualified Code(s): E11.9 - Type 2 diabetes mellitus without complications (3) Myasthenia gravis Current Visit: Yes Status: Chronic (4) 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 Current Visit: Yes Status: Chronic Assessment and plan: Xeloda is held until patient improves. (5) Nausea & vomiting Current Visit: Yes Status: Acute Assessment and plan: Present on admission, is resolved. Possibly due to renal function versus hyperglycemia. Qualifiers: Vomiting type: unspecified Vomiting Intractability: unspecified Qualified Code(s): R11.2 - Nausea with vomiting, unspecified (6) DVT prophylaxis Current Visit: Yes Status: Acute Assessment and plan: Heparin subq q12h - Subjective Interval history: No complaints, no acute events. Energy doing better. - Constitutional Vitals: Temp Pulse Resp BP Pulse Ox 98.0 F 61 18 124/75 96 10/05/17 14:55 10/05/17 14:55 10/05/17 14:55 10/05/17 14:55 10/05/17 14:55 General appearance: Present: cooperative, A&O X 3, pleasant, answers questions appropriately - Head Head exam: Present: atraumatic, normocephalic - Eye Eye exam: Present: PERRL, conjuntiva pink, sclera anicteric Pupils: Present: PERRL - Neck Neck exam general surgery: Present: supple, trachea midline. Absent: lymphadenopathy - Respiratory Respiratory exam: Present: CTAB. Absent: accessory muscle use, rales, rhonchi, wheezes - Cardiovascular Cardiovascular exam: Present: RRR, +S1, +S2. Absent: diastolic murmur, gallop, rubs, systolic murmur - GI/Abdominal GI/Abdominal exam: Present: normal bowel sounds, soft, no peritoneal signs. Absent: distended, tenderness - Extremities Exam Extremities exam: Present: warm, radial pulses palpable and symmetrical. Absent : calf tenderness, cyanotic, pedal edema - Neurological Exam Neurological exam: Present: CN II-XII intact, oriented X3, no focal deficits. Absent: pronater drift, facial droop, speech deficit - Skin Skin exam: Present: dry, intact Internal Medicine: Result - Labs CBC & Chem 7: 10/05/17 05:22 10/05/17 05:22 Labs: Short CBC 10/05/17 Range/Units 05:22 WBC 8.4 (4.3-11.1) K/mcL Hgb 12.8 L (12.9-16.9) g/dL Hct 37.7 (37.5-50.1) % Plt Count 159 (140-400) K/mcL Neutrophils # 6.5 (1.6-8.9) K/mcL BMP 10/05/17 05:22 Sodium 137 Potassium 4.2 Chloride 106 Carbon Dioxide 27 BUN 21 Creatinine 0.77 Glucose 160 H Calcium 8.5 L Consult Discharge Plan - Plan Referrals: Cuco Wilson MD [Primary Care Provider] -
[2017-10-05] MEDS: Gabapentin 300 MG CAPSULE PO SCH ×2 (17:15→21:16)
[2017-10-05] MEDS: Insulin DETEMIR 100 UNIT/ML X5UNITS SQ SCH (21:16)
[2017-10-06] MEDS: Hydrocortisone Sodium Succ 100 MG/2 ML VIAL IVP SCH ×3 (01:00→15:57)
[2017-10-06 05:14] LABS: Basophils % 0.1 %; Eosinophils % 0.1 %; Hematocrit 38.2 % (37.5-50.1); Hemoglobin 12.5 g/dL (12.9-16.9); Immature Granulocytes % 0.5 % (0-4); Lymphocytes # 1.4 K/mcL (0.6-4.6); Lymphocytes % 16.6 %; Mean Corpuscular HGB Conc 32.7 g/dL (31.6-35.5); Mean Corpuscular Hemoglobin 31.6 pg (28.0-33.3); Mean Corpuscular Volume 96.5 fL (83.0-100.0); Mean Platelet Volume 10.3 fL (9.4-12.4); Monocytes # 0.7 K/mcL (0.0-1.3); Monocytes % 7.9 %; Neutrophils # 6.3 K/mcL (1.6-8.9); Platelet Count 150 K/mcL (140-400); Red Blood Count 3.96 M/mcL (4.19-5.50); Red Cell Distribution Width 12.1 % (11.5-14.5); Segmented Neutrophils % 74.8 %
[2017-10-06 05:22] LABS: BUN/Creatinine Ratio 22 (6-26); Blood Urea Nitrogen 20 mg/dL (8-23); Calcium 8.8 mg/dL (8.6-10.3); Carbon Dioxide 29 mEq/L (23-29); Chloride 105 mEq/L (98-107); Glucose 111 mg/dL (70-105); Osmolality,Calculated 293 (280-300); Potassium 4.4 mEq/L (3.5-5.1); Sodium 140 mEq/L (136-145); eGFR For African Americans > 60 (> 60); eGFR For Non-African Americans > 60 (> 60)
[2017-10-06] MEDS: *HR* Heparin 5,000 UNIT/ML VIAL SQ SCH ×2 (06:11→17:11)
[2017-10-06] MEDS: Insulin LISPRO 300 UNITS/3 ML VIAL SQ SCH ×7 (07:58→21:29)
[2017-10-06] MEDS: Gabapentin 300 MG CAPSULE PO SCH ×3 (07:59→21:37)
[2017-10-06] MEDS: Insulin DETEMIR 100 UNIT/ML X5UNITS SQ SCH (21:38)
--- NOTE | 2017-10-06 23:05 | Internal Med Progress Note ---
Date of Encounter: 10/06/17 Time of Encounter: 13:03 - Assessment and plan (1) Generalized weakness Current Visit: Yes Status: Acute Assessment and plan: Likely from adrenal insufficiency. Oncology and Neurology evaluated patient and is less likely from myesthenia gravis or metastatic disease. Continue to taper Solu Cortef. (2) Type 2 diabetes mellitus Current Visit: Yes Status: Chronic Assessment and plan: Metformin held while admitted Lantus 18 units HS with 5 units humalog with meals and insulin sliding scale Goal glucose <180 Qualifiers: Diabetes mellitus complication status: without complication Diabetes mellitus care home insulin use: without dedicated intermodal truck driver use Qualified Code(s): E11.9 - Type 2 diabetes mellitus without complications (3) Myasthenia gravis Current Visit: Yes Status: Chronic (4) 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 Current Visit: Yes Status: Chronic Assessment and plan: Xeloda is held until patient improves. (5) Nausea & vomiting Current Visit: Yes Status: Acute Assessment and plan: Present on admission, is resolved. Possibly due to renal function versus hyperglycemia. Qualifiers: Vomiting type: unspecified Vomiting Intractability: unspecified Qualified Code(s): R11.2 - Nausea with vomiting, unspecified (6) DVT prophylaxis Current Visit: Yes Status: Acute Assessment and plan: Heparin subq q12h - Subjective Interval history: No complaints, no acute events. Energy doing better. - Constitutional Vitals: Temp Pulse Resp BP Pulse Ox 98.5 F 63 17 143/72 96 10/06/17 18:51 10/06/17 18:51 10/06/17 18:51 10/06/17 18:51 10/06/17 18:51 General appearance: Present: cooperative, A&O X 3, pleasant, answers questions appropriately - Head Head exam: Present: atraumatic, normocephalic - Eye Eye exam: Present: PERRL, conjuntiva pink, sclera anicteric Pupils: Present: PERRL - Neck Neck exam general surgery: Present: supple, trachea midline. Absent: lymphadenopathy - Respiratory Respiratory exam: Present: CTAB. Absent: accessory muscle use, rales, rhonchi, wheezes - Cardiovascular Cardiovascular exam: Present: RRR, +S1, +S2. Absent: diastolic murmur, gallop, rubs, systolic murmur - GI/Abdominal GI/Abdominal exam: Present: normal bowel sounds, soft, no peritoneal signs. Absent: distended, tenderness - Extremities Exam Extremities exam: Present: warm, radial pulses palpable and symmetrical. Absent : calf tenderness, cyanotic, pedal edema - Neurological Exam Neurological exam: Present: CN II-XII intact, oriented X3, no focal deficits. Absent: pronater drift, facial droop, speech deficit - Skin Skin exam: Present: dry, intact Internal Medicine: Result - Labs CBC & Chem 7: 10/06/17 04:50 10/06/17 04:50 Labs: Short CBC 10/06/17 Range/Units 04:50 WBC 8.4 (4.3-11.1) K/mcL Hgb 12.5 L (12.9-16.9) g/dL Hct 38.2 (37.5-50.1) % Plt Count 150 (140-400) K/mcL Neutrophils # 6.3 (1.6-8.9) K/mcL BMP 10/06/17 04:50 Sodium 140 Potassium 4.4 Chloride 105 Carbon Dioxide 29 BUN 20 Creatinine 0.90 Glucose 111 H Calcium 8.8 Consult Discharge Plan - Plan Referrals: Cuco Wilson MD [Primary Care Provider] -
[2017-10-07] MEDS: Hydrocortisone Sodium Succ 100 MG/2 ML VIAL IVP SCH ×2 (00:11→10:55)
[2017-10-07] MEDS: *HR* Heparin 5,000 UNIT/ML VIAL SQ SCH (05:00)
[2017-10-07] MEDS: Gabapentin 300 MG CAPSULE PO SCH ×2 (07:44→15:21)
[2017-10-07 10:31] VITALS: BP 116/73
[2017-10-07] MEDS: Insulin LISPRO 300 UNITS/3 ML VIAL SQ SCH ×2 (10:59→11:00)
--- NOTE | 2017-10-07 12:06 | Discharge Summary ---
Date of Encounter: 10/07/17 Time of Encounter: 12:03 - Discharge Diagnosis (1) Generalized weakness Priority: Primary Status: Acute (2) Adrenal insufficiency Priority: Secondary Status: Acute (3) Nausea & vomiting Priority: Secondary Status: Resolved Qualifiers: Vomiting type: unspecified Vomiting Intractability: unspecified Qualified Code(s): R11.2 - Nausea with vomiting, unspecified (4) Type 2 diabetes mellitus Priority: Secondary Status: Chronic Qualifiers: Diabetes mellitus complication status: without complication Diabetes mellitus skilled nursing insulin use: without terminal gauger use Qualified Code(s): E11.9 - Type 2 diabetes mellitus without complications (5) Myasthenia gravis Priority: Secondary Status: Chronic (6) 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 Priority: Secondary Status: Chronic (7) DVT prophylaxis Priority: Secondary Status: Acute - Discharge Medications Home Medications: Citalopram Hydrobromide [Citalopram HBr] 40 mg PO DAILY 01/28/17 [History] Gabapentin [Neurontin] 300 mg PO TID 01/28/17 [History] Metformin HCl [Fortamet] 1,000 mg PO DAILY 01/28/17 [History] Multivit-Min/FA/Lycopen/Lutein [Centrum Silver Tablet] 1 each PO DAILY 01/28/17 [History] SitaGLIPtin [Januvia] 100 mg PO DAILY 01/28/17 [History] Ondansetron HCl [Zofran] 4 mg PO Q6H PRN #60 tablet 10/01/17 [Rx] predniSONE [PredniSONE] See Taper PO DAILY #15 tablet 10/07/17 [Rx] Allergies/Adverse Reactions: 3 Allergy/AdvReac Type Severity Reaction Status Date / Time azathioprine [From Imuran] AdvReac Fatigued Verified 10/01/17 08:37 Date of admission: 10/04/17 00:28 Primary care physician: Cuco Wilson MD Consults: 10/04/17 06:43 Consult to Neurology [CONS] Routine Consulting Provider: Neurology [facility] Reason for Consult: myasthenia; weakness Call Completed: No Consult to Oncology Hematology [CONS] Routine Consulting Provider: Jv Whitney Reason for Consult: rectal CA with mets; recent chemotherapy, now with suspected adreanl insuffciency. Call Completed: No Discharging clinician: Pipo Rheem Ghanem - Patient Status Disposition: Home, Self-Care Condition: Good Functional capacity at discharge: independent ambulation Overall status at discharge: patient is back to baseline - Discharge Instructions Follow Up With: Cuco Wilson MD [Primary Care Provider] - - Diet and Activity Activity: increase activity as tolerated Diet: diabetic diet Hospital course: Mr. Smith is a 66 year old male with history of myasthenia gravis, rectal cancer with mets on chemotherapy and Prednisone, presented for sudden onset of weakness with nausea and vomiting. He received a dose of solumedrol and 1L of normal saline, and he reports vast improvement in symptoms. There was concern that this may be weakness from adrenal insufficiency, myasthenic crisis, or malignancy related. Neurology and Oncology were consulted and deemed this was most likely adrenal insufficiency. Patient was continued on Solu-Cortef and had gradual taper of medication. He tolerated taper without issue. He was discharged home to continue taper of Prednisone. Xeloda has been held upon discharge per Oncology recommendations. - Time Spent with Patient Total time spent providing and/or coordinating discharge services: - Constitutional Vitals: Temp Pulse Resp BP Pulse Ox 97.9 F 64 16 116/73 96 10/07/17 10:29 10/07/17 10:29 10/07/17 10:29 10/07/17 10:29 10/07/17 10:29 General appearance: Present: cooperative, A&O X 3, pleasant, answers questions appropriately Exam: - Head Head exam: Present: atraumatic, normocephalic - Eye Eye exam: Present: PERRL, conjuntiva pink, sclera anicteric Pupils: Present: PERRL - Neck Neck exam general surgery: Present: supple, trachea midline. Absent: lymphadenopathy - Respiratory Respiratory exam: Present: CTAB. Absent: accessory muscle use, rales, rhonchi, wheezes - Cardiovascular Cardiovascular exam: Present: RRR, +S1, +S2. Absent: diastolic murmur, gallop, rubs, systolic murmur - GI/Abdominal GI/Abdominal exam: Present: normal bowel sounds, soft, no peritoneal signs. Absent: distended, tenderness - Extremities Exam Extremities exam: Present: warm, radial pulses palpable and symmetrical. Absent : calf tenderness, cyanotic, pedal edema - Neurological Exam Neurological exam: Present: CN II-XII intact, oriented X3, no focal deficits. Absent: pronater drift, facial droop, speech deficit - Skin Skin exam: Present: dry, intact
== END 2017-10-07 15:45 | disposition home or self-care (01) ==
LOC: 2ANU 20:34 → EMEROO 20:34 → 3ANU 10-04 00:29
PROVIDERS: ADMIT Pediatrics; ATTEND Hospitalist

== ENCOUNTER 2018-07-17 15:46 | Inpatient (IN) ==
[2018-07-17] MEDS ORDERED: Piperacillin/Tazobactam 4.5 GM in Water for inj. (sterile) 20 ML 20 ML IVP ONE ×2 (16:22→17:00)
[2018-07-17] MEDS ORDERED: 0.9 % Sodium Chloride 1,000 ML IVC ONE (16:22)
--- NOTE | 2018-07-17 16:53 | Emergency Department Note ---
Disposition Clinical Impression: Weakness Disposition: Admitted As Inpatient Condition: Fair Referrals: Cuco Wilson MD [Primary Care Provider] - Forms: ED Satisfaction Letter General Adult HPI - General Chief complaint: ED Fever Stated complaint: Weakness Time Seen by Provider: 07/17/18 15:57 Source: EMS Limitations: no limitations - History of Present Illness Pain Scale: 0 - Related Data Home Medications Medication Instructions Recorded Confirmed Citalopram Hydrobromide 40 mg PO DAILY 01/28/17 07/17/18 [Citalopram HBr] Gabapentin [Neurontin] 300 mg PO TID 01/28/17 07/17/18 Metformin HCl [Fortamet] 1,000 mg PO BID 01/28/17 07/17/18 Multivit-Min/FA/Lycopen/Lutein 1 each PO DAILY 01/28/17 07/17/18 [Centrum Silver Tablet] SitaGLIPtin [Januvia] 100 mg PO DAILY 01/28/17 07/17/18 Atorvastatin Calcium [Lipitor] 20 mg PO QPM 07/17/18 07/17/18 Insulin Glargine,Hum.rec.anlog 16 unit SQ QPM 07/17/18 07/17/18 [Lantus Solostar] diazePAM [Valium] 2 mg PO DAILY PRN 07/17/18 07/17/18 predniSONE [PredniSONE] 10 mg PO DAILY 07/17/18 07/17/18 Previous Rx's Medication Instructions Recorded Ondansetron HCl [Zofran] 4 mg PO Q6H PRN #60 tablet 10/01/17 Allergies Allergy/AdvReac Type Severity Reaction Status Date / Time azathioprine [From Imuran] AdvReac Fatigued Verified 07/08/18 09:58 Past Medical History - Past Medical History Medical history: Reports: cancer, diabetes, hyperlipidemia, other Surgical history: Reports: colectomy Psychiatric history: Reports: no psych history - Social History Smoking Status: Former smoker Smokeless Tobacco Status: No Alcohol use: Reports: none Drug use: Reports: none Physical Exam - General Limitations: no limitations General appearance: alert Course Vital Signs Temperature 99.6 F 07/17/18 15:55 Pulse Rate 121 07/17/18 15:55 Respiratory Rate 18 07/17/18 15:55 Blood Pressure 129/82 07/17/18 15:55 O2 Sat by Pulse Oximetry 91 07/17/18 15:55 Temperature 99.6 F 07/17/18 15:55 Pulse Rate 119 07/17/18 18:53 Respiratory Rate 28 07/17/18 18:53 Blood Pressure 113/76 07/17/18 18:53 O2 Sat by Pulse Oximetry 92 07/17/18 18:53 Oxygen Delivery Oxygen Delivery Nasal Cannula Medical Decision Making - Lab Data Result diagrams: 07/17/18 16:05 07/17/18 16:05 Lab Results 07/17/18 07/17/18 07/17/18 Range/Units 16:05 16:05 16:05 WBC 5.7 (4.3-11.1) K/mcL RBC 4.20 (4.19-5.50) M/mcL Hgb 13.3 (12.9-16.9) g/dL Hct 39.0 (37.5-50.1) % MCV 92.9 (83.0-100.0) fL MCH 31.7 (28.0-33.3) pg MCHC 34.1 (31.6-35.5) g/dL RDW 12.4 (11.5-14.5) % Plt Count 175 (140-400) K/mcL MPV 10.0 (9.4-12.4) fL Immature Gran % 4.0 (0-4) % Seg Neutrophils % 74.2 % Lymphocytes % 12.8 % Monocytes % 8.1 % Eosinophils % 0.2 % Basophils % 0.7 % Neutrophils # 4.2 (1.6-8.9) K/mcL Lymphocytes # 0.7 (0.6-4.6) K/mcL Monocytes # 0.5 (0.0-1.3) K/mcL Eosinophils # 0.0 (0.0-0.6) K/mcL Basophils # 0.0 (0.0-0.2) K/mcL Sodium 136 (136-145) mEq/L Potassium 3.8 (3.5-5.1) mEq/L Chloride 99 (98-107) mEq/L Carbon Dioxide 28 (23-29) mEq/L BUN 16 (8-23) mg/dL Creatinine 0.76 (0.70-1.30) mg/dL Est GFR ( Amer) > 60 (> 60) Est GFR (Non-Af Amer) > 60 (> 60) BUN/Creatinine Ratio 21 (6-26) Glucose 178 H (70-105) mg/dL Calculated Osmolality 288 (280-300) Lactic Acid 2.1 (0.5-2.2) mmol/L Calcium 8.5 L (8.6-10.3) mg/dL Phosphorus 2.0 L (2.7-4.5) mg/dL Magnesium 1.2 L (1.6-2.6) mg/dL Total Bilirubin 0.7 (0.3-1.0) mg/dL Direct Bilirubin 0.1 (0.0-0.2) mg/dL Indirect Bilirubin 0.6 (0.0-1.2) mg/dL AST 28 (13-39) Units/L ALT 34 (7-52) Units/L Alkaline Phosphatase 117 H (34-104) Units/L Troponin I 0.03 (< 0.04) ng/mL Serum Total Protein 5.8 L (6.4-8.9) g/dL Albumin 2.9 L (3.5-5.7) g/dL Globulin 2.9 (2.4-3.5) g/dL Albumin/Globulin Ratio 1.0 L (1.1-2.2) Urine Color (Yellow) Urine Clarity (Clear) Urine pH (5.0-8.0) pH Units Ur Specific Damon (1.010-1.025) Urine Protein (Neg-Trace) mg/dL Urine Glucose (UA) (Normal) mg/dL Urine Ketones (Negative) mg/dL Urine Blood (Negative) Urine Nitrite (Negative) Urine Bilirubin (Negative) Urine Urobilinogen (Normal) mg/dL Ur Leukocyte Esterase (Negative) Urine Microscopic RBC (0-3) per hpf Urine Microscopic WBC (0-3) per hpf Ur Squamous Epith Cells (None-Few) per lpf Urine Bacteria (None-Few) per hpf Hyaline Casts (None-Few) per lpf Ur Culture Indicated? (NO) 07/17/18 Range/Units 17:55 WBC (4.3-11.1) K/mcL RBC (4.19-5.50) M/mcL Hgb (12.9-16.9) g/dL Hct (37.5-50.1) % MCV (83.0-100.0) fL MCH (28.0-33.3) pg MCHC (31.6-35.5) g/dL RDW (11.5-14.5) % Plt Count (140-400) K/mcL MPV (9.4-12.4) fL Immature Gran % (0-4) % Seg Neutrophils % % Lymphocytes % % Monocytes % % Eosinophils % % Basophils % % Neutrophils # (1.6-8.9) K/mcL Lymphocytes # (0.6-4.6) K/mcL Monocytes # (0.0-1.3) K/mcL Eosinophils # (0.0-0.6) K/mcL Basophils # (0.0-0.2) K/mcL Sodium (136-145) mEq/L Potassium (3.5-5.1) mEq/L Chloride (98-107) mEq/L Carbon Dioxide (23-29) mEq/L BUN (8-23) mg/dL Creatinine (0.70-1.30) mg/dL Est GFR ( Amer) (> 60) Est GFR (Non-Af Amer) (> 60) BUN/Creatinine Ratio (6-26) Glucose (70-105) mg/dL Calculated Osmolality (280-300) Lactic Acid (0.5-2.2) mmol/L Calcium (8.6-10.3) mg/dL Phosphorus (2.7-4.5) mg/dL Magnesium (1.6-2.6) mg/dL Total Bilirubin (0.3-1.0) mg/dL Direct Bilirubin (0.0-0.2) mg/dL Indirect Bilirubin (0.0-1.2) mg/dL AST (13-39) Units/L ALT (7-52) Units/L Alkaline Phosphatase (34-104) Units/L Troponin I (< 0.04) ng/mL Serum Total Protein (6.4-8.9) g/dL Albumin (3.5-5.7) g/dL Globulin (2.4-3.5) g/dL Albumin/Globulin Ratio (1.1-2.2) Urine Color Yellow (Yellow) Urine Clarity Clear (Clear) Urine pH 7.0 (5.0-8.0) pH Units Ur Specific Damon 1.009 L (1.010-1.025) Urine Protein Trace (Neg-Trace) mg/dL Urine Glucose (UA) Normal (Normal) mg/dL Urine Ketones Negative (Negative) mg/dL Urine Blood Negative (Negative) Urine Nitrite Negative (Negative) Urine Bilirubin Negative (Negative) Urine Urobilinogen 4.0 H (Normal) mg/dL Ur Leukocyte Esterase Negative (Negative) Urine Microscopic RBC 0-3 (0-3) per hpf Urine Microscopic WBC 0-3 (0-3) per hpf Ur Squamous Epith Cells Many H (None-Few) per lpf Urine Bacteria None Seen (None-Few) per hpf Hyaline Casts None Seen (None-Few) per lpf Ur Culture Indicated? NO (NO) Attestation Statement - Attestation Attestation: I examined this patient and my medical decision-making was reviewed with the AUTOMATION/CONTROLS MANAGER/PA/Advanced Practice Nurse/Resident Physician. I agree with the documented findings, disposition and treatment plan as described except to the extent set forth below. Patient with history of metastatic rectal cancer who presents with lethargy, temperature 102.6 degrees but does not have shortness of breath. Denies any specific areas of pain. Patient does have symptoms consistent with sepsis and does not have hypertension however we are further evaluating with a lactate level, blood cultures, labs. The patient is tachycardic and hypoxemic. Will be started on Zosyn and vancomycin. The patient's is at bedside 1653 I did review the patient's EKG showing sinus tachycardia with a rate of 111 bpm and some nonspecific T-wave abnormalities 1732 I did speak with the family and they are concerned about left face twitching because the last time this happened the patient had a bleed from of them one of the metastases to his brain so head CT will be ordered. The patient is already admitted. We will follow-up the results of the head CT and the patient's also is DNRCC arrest. This is per my discussion with the . 191
[2018-07-17 16:55] LABS: Basophils % 0.7 %; Eosinophils % 0.2 %; Hemoglobin 13.3 g/dL (12.9-16.9); Lymphocytes # 0.7 K/mcL (0.6-4.6); Lymphocytes % 12.8 %; Mean Corpuscular HGB Conc 34.1 g/dL (31.6-35.5); Mean Corpuscular Hemoglobin 31.7 pg (28.0-33.3); Mean Corpuscular Volume 92.9 fL (83.0-100.0); Monocytes # 0.5 K/mcL (0.0-1.3); Monocytes % 8.1 %; Neutrophils # 4.2 K/mcL (1.6-8.9); Platelet Count 175 K/mcL (140-400); Red Cell Distribution Width 12.4 % (11.5-14.5); Segmented Neutrophils % 74.2 %
--- NOTE | 2018-07-17 17:05 | Emergency Department Note ---
Disposition Clinical Impression: Weakness Sepsis Qualifiers: Sepsis type: sepsis due to unspecified organism Qualified Code(s): A41.9 - Sepsis, unspecified organism Disposition: Still a Patient Condition: Fair Referrals: Cuco Wilson MD [Primary Care Provider] - Time of Disposition: 21:34 Fever HPI - General Chief Complaint: ED Fever Stated Complaint: Weakness Time Seen by Provider: 07/17/18 15:57 Source: EMS Limitations: no limitations Nursing Notes Reviewed: Yes Vital Signs Reviewed: Yes - History of Present Illness HPI Narrative: 67 year old female presents for generalized weakness and fever. Most of history of obtained from patient's . This morning, patient got up from bed to go to bathroom, and legs could not support his weight. He let himself to the ground slowly. Patient denies any dizziness, lightheadedness, chest pain, or shortness of breath at that time. Denies loss of consciousness. found him on floor and he had soiled himself - urine and feces. He felt warm and got temperature of 102.6F. states that patient is usually high energy, but today he just wants to sleep, he is weak and declines all food/water/meds. states that he is not confused. Patient admits nausea without emesis. Admits diarrhea, unchanged from past 5 years. Denies blood in stools, abdominal pain, cough, headache. reports seeing big red rash on buttocks today. History of rectal cancer with metastasis to liver, lungs, and brain. Patient had cyberknife laser surgery 2 weeks ago for 4 brain lesions. Patient was taking dexamethasone for brain inflammation after cyberknife surgery, last dose was today. Patient's states that legs have been giving out since surgery. called Dr. Kelly who performed the surgery and was told that he does not believe the surgery was the cause. Patient also has a history of diabetes and myasthenia gravis for which he takes IVIG. Patient is not currently on chemotherapy. Patient was given prognosis of 6 months after cyberknife surgery. - Related Data Home Medications Medication Instructions Recorded Confirmed Citalopram Hydrobromide 40 mg PO DAILY 01/28/17 07/08/18 [Citalopram HBr] Gabapentin [Neurontin] 300 mg PO TID 01/28/17 07/08/18 Metformin HCl [Fortamet] 1,000 mg PO DAILY 01/28/17 07/08/18 Multivit-Min/FA/Lycopen/Lutein 1 each PO DAILY 01/28/17 07/08/18 [Centrum Silver Tablet] SitaGLIPtin [Januvia] 100 mg PO DAILY 01/28/17 07/08/18 Atorvastatin Calcium [Lipitor] 20 mg PO QPM 07/17/18 07/17/18 Insulin Glargine,Hum.rec.anlog 16 unit SQ QPM 07/17/18 07/17/18 [Lantus Solostar] diazePAM [Valium] 2 mg PO DAILY PRN 07/17/18 07/17/18 predniSONE [PredniSONE] 10 mg PO DAILY 07/17/18 07/17/18 Previous Rx's Medication Instructions Recorded Ondansetron HCl [Zofran] 4 mg PO Q6H PRN #60 tablet 10/01/17 Allergies Allergy/AdvReac Type Severity Reaction Status Date / Time azathioprine [From Imuran] AdvReac Fatigued Verified 07/08/18 09:58 Constitutional: Reports: fever. Denies: chills Eyes: Denies: eye pain, eye discharge ENT ED: Denies: ear pain, throat pain Cardiovascular: Denies: chest pain, palpitations Respiratory: Denies: cough, dyspnea Gastrointestinal: Reports: nausea. Denies: abdominal pain Genitourinary: Denies: urgency, dysuria Musculoskeletal: Denies: back pain, neck pain Integumentary: Denies: rash, abrasion Neurological: Reports: weakness. Denies: headache Fever PMH - Past Medical History Medical history: Reports: cancer, diabetes, hyperlipidemia, other Surgical history: Reports: colectomy Psychiatric history: Reports: no psych history - Social History Smoking Status: Former smoker Alcohol use: Reports: none Drug use: Reports: none Physical Exam - General Limitations: no limitations General appearance: alert, in no apparent distress, other (appears tired but responds appropriately) - Head Head exam: atraumatic, normocephalic - Eye Eye exam: Present: PERRL, EOMI. Absent: scleral icterus, conjunctival injection - ENT ENT exam: normal oropharynx, mucous membranes moist - Neck Neck exam: Present: normal inspection - Chest Chest inspection: Present: normal inspection, symmetric chest wall rise - Respiratory Respiratory exam: Present: normal lung sounds bilaterally. Absent: respiratory distress - Cardiovascular Cardiovascular exam: Present: regular rate, normal rhythm - Abdominal Exam Abdominal exam: Present: soft, Non-Tender, normal bowel sounds. Absent: distention, guarding, rebound, rigidity - Extremities Exam Extremities exam: Present: normal inspection. Absent: tenderness, pedal edema, joint swelling - Neurological Exam Neurological exam: Present: alert, oriented X3, CN II-XII intact. Absent: motor sensory deficit - Skin Skin exam: Present: warm, dry, intact, normal color Course Course Narrative: 67 year old male with history of rectal cancer stage 4 and myasthenia gravis presents for fever and weakness since this morning. reports temperature of 102.6F. Patient would not take any meds today, including tylenol. Patient is alert and oriented. Patient is afebrile and tachycardic at 121. Physical exam is unremarkable. There are no focal deficits. Will do sepsis workup. Will provide IVF and start empiric antibiotics vanc and zosyn. - Reevaluation(s) Reevaluation #1: CBC is unremarkable, there is no leukocytosis or anemia. BMP shows elevated glucose at 178, otherwise unremarkable. Hepatic panel is unremarkable. Calcium is low at 8.5, phosphorus is low at 2.0, and magnesium is low at 1.2. Lactic is normal. Troponin is negative. UA is unremarkable. EKG shows no acute ischemic changes. CXR is negative. Discussed results with patient and family. They voiced understanding and agree to admission. Patient's family requests CT brain due to left face twitching. They state that last night had left face twitching, he had a brain bleed. Will order CT brain. Time: 19:11 Reevaluation #2: CT head is negative for acute intracranial abnormality. Hospitalist Dr. Ocasio agrees to admit. Time: 21:33 Vital Signs Temperature 99.6 F 07/17/18 15:55 Pulse Rate 121 07/17/18 15:55 Respiratory Rate 18 07/17/18 15:55 Blood Pressure 129/82 07/17/18 15:55 O2 Sat by Pulse Oximetry 91 07/17/18 15:55 Temperature 99.6 F 07/17/18 15:55 Pulse Rate 121 07/17/18 15:55 Respiratory Rate 18 07/17/18 15:55 Blood Pressure 129/82 07/17/18 15:55 O2 Sat by Pulse Oximetry 91 07/17/18 15:55 Oxygen Delivery Oxygen Delivery Nasal Cannula Fever - MDM Narrative Medical decision making narrative: Chest X-Ray 07/17/18 17:29 IMPRESSION: Stable to slight interval decrease in size of pulmonary masses bilaterally some of which could be related to difference in imaging technique, when compared to 06/10/[address] Right basilar atelectasis or scarring. Other acute cardiopulmonary findings. D/ /17/2018 18:26:05 Britta Velasquez MD / [facility] Interpreting Provider: Britta Velasquez MD Chest X-Ray 07/17/18 17:29 IMPRESSION: Stable to slight interval decrease in size of pulmonary masses bilaterally some of which could be related to difference in imaging technique, when compared to 06/10/[address] Right basilar atelectasis or scarring. Other acute cardiopulmonary findings. D/ /17/2018 18:26:05 Britta Velasquez MD / [facility] Interpreting Provider: Britta Velasquez MD Head CT 07/17/18 19:08 IMPRESSION: Redemonstration of high attenuation metastatic lesions within the brain as described above. Decreased vasogenic edema associated with the largest lesion in the right frontal lobe. No significant mass effect. Otherwise no acute intracranial abnormality. D/ /17/2018 21:10:57 Thanh Haider MD / [facility] Interpreting Provider: Thanh Haider MD - Medical Records Medical records reviewed: Yes I reviewed the patient's medical records. - Lab Data Lab results reviewed: Yes I reviewed the patient's lab results. - Radiology Data Radiology results reviewed: Yes I reviewed the patient's radiology results. - EKG Data EKG attestation: Yes I reviewed and interpreted this EKG. EKG results narrative: EKG 07/17/18 17:09. Sinus rhythm. Heart rate 111. No ST segment elevation or depression.
[2018-07-17 17:18] LABS: Troponin I 0.03 ng/mL (< 0.04)
[2018-07-17 17:19] LABS: Alanine Aminotransferase 34 Units/L (7-52); Albumin 2.9 g/dL (3.5-5.7); Alkaline Phosphatase 117 Units/L (34-104); Aspartate Amino Transferase 28 Units/L (13-39); BUN/Creatinine Ratio 21 (6-26); Bilirubin,Direct 0.1 mg/dL (0.0-0.2); Bilirubin,Indirect 0.6 mg/dL (0.0-1.2); Bilirubin,Total 0.7 mg/dL (0.3-1.0); Blood Urea Nitrogen 16 mg/dL (8-23); Calcium 8.5 mg/dL (8.6-10.3); Carbon Dioxide 28 mEq/L (23-29); Chloride 99 mEq/L (98-107); Globulin 2.9 g/dL (2.4-3.5); Glucose 178 mg/dL (70-105); Magnesium 1.2 mg/dL (1.6-2.6); Osmolality,Calculated 288 (280-300); Potassium 3.8 mEq/L (3.5-5.1); Sodium 136 mEq/L (136-145); Total Protein 5.8 g/dL (6.4-8.9); eGFR For Non-African Americans > 60 (> 60)
[2018-07-17 18:06] LABS: Bilirubin,Urine Negative (Negative); Blood,Urine Negative (Negative); Clarity,Urine Clear (Clear); Color,Urine Yellow (Yellow); Glucose,Urine (UA) Normal (Normal); Ketones,Urine Negative (Negative); Leukocyte Esterase,Urine Negative (Negative); Nitrite,Urine Negative (Negative); Protein,Urine Trace mg/dL (Neg-Trace); Specific Gravity,Urine 1.009 (1.010-1.025)
[2018-07-17 18:08] LABS: Bacteria,Urine None Seen per hpf (None-Few); Hyaline Casts,Urine None Seen per lpf (None-Few); RBC,Urine 0-3 per hpf (0-3); Squamous Epithelial Cell,Urine Many per lpf (None-Few); WBC,Urine 0-3 per hpf (0-3)
[2018-07-18] MEDS ORDERED: Naloxone 0.4 MG/ML INJ IVP PRN (03:14)
[2018-07-18] MEDS: Acetaminophen 325 MG TABLET PO PRN ×2 (03:36→12:31)
[2018-07-18 04:59] LABS: Hematocrit 38.1 % (37.5-50.1); Hemoglobin 12.6 g/dL (12.9-16.9); Mean Corpuscular HGB Conc 33.1 g/dL (31.6-35.5); Mean Corpuscular Hemoglobin 31.2 pg (28.0-33.3); Mean Corpuscular Volume 94.3 fL (83.0-100.0); Mean Platelet Volume 9.9 fL (9.4-12.4); Platelet Count 160 K/mcL (140-400); Red Blood Count 4.04 M/mcL (4.19-5.50); Red Cell Distribution Width 12.4 % (11.5-14.5)
[2018-07-18 06:19] LABS: BUN/Creatinine Ratio 19 (6-26); Blood Urea Nitrogen 14 mg/dL (8-23); Calcium 7.9 mg/dL (8.6-10.3); Carbon Dioxide 25 mEq/L (23-29); Chloride 101 mEq/L (98-107); Glucose 174 mg/dL (70-105); Osmolality,Calculated 285 (280-300); Potassium 3.6 mEq/L (3.5-5.1); Sodium 135 mEq/L (136-145); eGFR For Non-African Americans > 60 (> 60)
--- NOTE | 2018-07-18 07:44 | Internal Med History&Physical ---
Date of Encounter: 07/18/18 Time of Encounter: 02:45 Internal Medicine - H&P: HPI Chief complaint: Weakness Admitted From: Emergency Dept Plans for Post Hospital Care: Home History of present illness: Mr. Smith is a 67 year old male Patient presented to the ER with 2 day history of weakness that has gradually been worsening. Of note patient has a history of myasthenia gravis, as well as metastatic rectal cancer with metastasis to brain, lung and liver. He states that this morning he fell, and could not get up, requiring his to call the ambulance, who then transported him to the ER. He has had weakness before, but never quite this bad. In the ER patient was found to be afebrile, tachycardic but otherwise vitals were within normal limits. A CBC and BMP were within normal limits. Phosphate and magnesium were found to be low however. Chest x-ray was stable. A head CT was ordered due to concerns from the patient's family regarding possible brain bleed showed metastatic lesions but no mass effect or other acute intracranial abnormality. The ER discussed with the patient and his family goals of care, and they confirmed that the patient was [id number]. He was then admitted for further management of his fevers and weakness. Upon my assessment, patient appears groggy, but is arousable. He answers questions appropriately but does take time to think about answers. He indicates that he has soft stools, but not diarrhea. No nausea, vomiting, chest pain, cough, joint pain, or abdominal pain. He sees oncology outpatient, recently had cyberknife surgery and is not currently on chemotherapy. He takes IVIG for his myasthenia gravis as well as daily steroids. He follow up with neurology for this. Past Med Surg Social Fam HX - Past Medical History Medical history: cancer, diabetes, hyperlipidemia, other Additional medical history: Brain/Lung CA Psychiatric history: no psych history - Past Surgical History Surgical History: colectomy Additional surgical history: thymus removal, - Social History Smoking Status: Former smoker Smokeless Tobacco Status: No Alcohol use: none Drug use: none Internal Medicine - H&P: Meds Citalopram Hydrobromide [Citalopram HBr] 40 mg PO DAILY 01/28/17 [History] Gabapentin [Neurontin] 300 mg PO TID 01/28/17 [History] Metformin HCl [Fortamet] 1,000 mg PO BID 01/28/17 [History] Multivit-Min/FA/Lycopen/Lutein [Centrum Silver Tablet] 1 each PO DAILY 01/28/17 [History] SitaGLIPtin [Januvia] 100 mg PO DAILY 01/28/17 [History] Ondansetron HCl [Zofran] 4 mg PO Q6H PRN #60 tablet 10/01/17 [Rx] Atorvastatin Calcium [Lipitor] 20 mg PO QPM 07/17/18 [History] Insulin Glargine,Hum.rec.anlog [Lantus Solostar] 16 unit SQ QPM 07/17/18 [H istory] diazePAM [Valium] 2 mg PO DAILY PRN 07/17/18 [History] predniSONE [PredniSONE] 10 mg PO DAILY 07/17/18 [History] Allergy/AdvReac Type Severity Reaction Status Date / Time azathioprine [From Imuran] AdvReac Fatigued Verified 07/08/18 09:58 All Systems PM: A 10-system review of systems was performed and is negative for pertinent findings except as documented above in the HPI. - Constitutional Vitals: Temp Pulse Resp BP Pulse Ox 98.5 F 110 16 106/62 94 07/18/18 05:23 07/18/18 05:23 07/18/18 05:23 07/18/18 05:23 07/18/18 05:23 General appearance: Present: cooperative, A&O X 3, pleasant, no acute distress, answers questions appropriately Exam: As above - Head Head exam: Present: normal inspection - Eye Eye exam: Present: EOMI, normal appearance. Absent: periorbital swelling - Neck Neck exam general surgery: Present: full ROM. Absent: tenderness - Respiratory Respiratory exam: Present: CTAB. Absent: chest wall tenderness, respiratory distress, wheezes - Cardiovascular Cardiovascular exam: Present: RRR. Absent: diastolic murmur, systolic murmur - GI/Abdominal GI/Abdominal exam: Present: normal bowel sounds, soft. Absent: tenderness - Extremities Exam Extremities exam: Present: normal inspection, warm, radial pulses palpable and symmetrical. Absent: calf tenderness, pedal edema, tenderness - Neurological Exam Neurological exam: Present: no focal deficits, strengths equal and symetr throughout. Absent: motor sensory deficit, facial droop, speech deficit - Expanded Neurological Exam Neuro motor strength exam: JULIAE: 5, RUE: 5, LLE: 5, RLE: 5 - Skin Skin exam: Present: dry, normal color, warm Internal Med - H&P Results - Labs CBC & Chem 7: 07/18/18 04:25 07/18/18 05:46 Labs: Short CBC 07/17/18 07/18/18 Range/Units 16:05 04:25 WBC 5.7 5.2 (4.3-11.1) K/mcL Hgb 13.3 12.6 L (12.9-16.9) g/dL Hct 39.0 38.1 (37.5-50.1) % Plt Count 175 160 (140-400) K/mcL Neutrophils # 4.2 (1.6-8.9) K/mcL BMP 07/17/18 07/18/18 16:05 05:46 Sodium 136 135 L Potassium 3.8 3.6 Chloride 99 101 Carbon Dioxide 28 25 BUN 16 14 Creatinine 0.76 0.74 Glucose 178 H 174 H Calcium 8.5 L 7.9 L Cardiac Enzymes 07/17/18 Range/Units 16:05 Troponin I 0.03 (< 0.04) ng/mL Liver Function 07/17/18 Range/Units 16:05 Total Bilirubin 0.7 (0.3-1.0) mg/dL Direct Bilirubin 0.1 (0.0-0.2) mg/dL AST 28 (13-39) Units/L ALT 34 (7-52) Units/L Alkaline Phosphatase 117 H (34-104) Units/L Albumin 2.9 L (3.5-5.7) g/dL Urine 07/17/18 Range/Units 17:55 Urine Color Yellow (Yellow) Urine Clarity Clear (Clear) Urine pH 7.0 (5.0-8.0) pH Units Ur Specific [place] 1.009 L (1.010-1.025) Urine Protein Trace (Neg-Trace) mg/dL Urine Glucose (UA) Normal (Normal) mg/dL - Impressions ITS Impressions Chest X-Ray 07/17/18 17:29 IMPRESSION: Stable to slight interval decrease in size of pulmonary masses bilaterally some of which could be related to difference in imaging technique, when compared to 06/10/[address] Right basilar atelectasis or scarring. Other acute cardiopulmonary findings. D/ /17/2018 18:26:05 Britta Velasquez MD / rosina Interpreting Provider: Britta Velasquez MD Head CT 07/17/18 19:08 IMPRESSION: Redemonstration of high attenuation metastatic lesions within the brain as described above. Decreased vasogenic edema associated with the largest lesion in the right frontal lobe. No significant mass effect. Otherwise no acute intracranial abnormality. D/ /17/2018 21:10:57 Thanh Haider MD / rosina Interpreting Provider: Thanh Haider MD - Assessment and plan (1) Generalized weakness Current Visit: Yes Status: Acute Assessment and plan: Could be secondary to MG, patient states that he did miss a dose recently for his IVIG. Patient denies blurry vision, but does have increased weakness the last few days. Neurology consultation PT/OT consultation. (2) Myasthenia gravis Current Visit: No Status: Chronic Assessment and plan: Could be contributing to his weakness, patient seen by neurology outpatient for this. Neurology consultation Follow up recommendations. Continue prednisone 10mg daily (3) 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 Current Visit: No Status: Chronic Assessment and plan: Recently treated with cyberknife, has poor prognosis. Unclear if treatment for his cancer contributing to his weakness overall. Continue to monitor Consider oncology consultation (4) Type 2 diabetes mellitus Current Visit: No Status: Chronic Assessment and plan: Hold home meds Monitor sugars with meals and at night Insulin sliding scale as needed. Qualifiers: Diabetes mellitus terminal supervisor insulin use: without [place] use Diabetes mellitus complication status: without complication Qualified Code(s): E11.9 - Type 2 diabetes mellitus without complications (5) SIRS (systemic inflammatory response syndrome) Current Visit: Yes Status: Acute Assessment and plan: Patient did have an elevated temperature, as well as tachycardia, but no clear source of infection. Vital signs improved after tylenol and IV fluids. Vancomycin and zosyn also started in ER. Continue to monitor Continue antibiotics, deescalate accordingly. Follow up results of blood culture (6) Hypomagnesemia Current Visit: Yes Status: Acute Assessment and plan: Replete Continue to monitor (7) Hypophosphatemia Current Visit: Yes Status: Acute Assessment and plan: Replete Continue to monitor (8) DVT prophylaxis Current Visit: No Status: Acute Assessment and plan: Subq heparin - Time Spent With Patient Total time spent is greater than 50% in coordination of care (as documented) at patient's floor/unit and/or counseling patient: Greater than 35 minutes
[2018-07-18] MEDS ORDERED: Piperacillin/Tazobactam 3.375 GM in 0.9 % Sodium Chloride Mini Bag 100 ML IVPB SCH (08:00)
[2018-07-18] MEDS ORDERED: diazePAM 2 MG TABLET PO PRN (08:32)
[2018-07-18] MEDS ORDERED: Dextrose Gel 15 GM/37.5 ML TUBE PO PRN ×2 (08:33)
[2018-07-18] MEDS ORDERED: *HR* Dextrose 50 % in Water (Syg) 50 ML SYRINGE IVP PRN (08:33)
[2018-07-18] MEDS ORDERED: D5% in Water 1,000 ML IVC PRN (08:33)
[2018-07-18] MEDS: predniSONE 10 MG TABLET PO SCH (09:35)
[2018-07-18] MEDS: Gabapentin 300 MG CAPSULE PO SCH ×3 (09:35→23:20)
[2018-07-18] MEDS ORDERED: *HR* Metoprolol 5 MG/5 ML VIAL IVP PRN (11:56)
[2018-07-18] MEDS ORDERED: Doxycycline 100 MG CAPSULE PO SCH (12:00)
[2018-07-18 12:18] LABS: Adenovirus Not Detected (Not Detect); Bordetella Pertussis Not Detected (Not Detect); Chlamydophila pneumoniae Not Detected (Not Detect); Coronavirus 229E Not Detected (Not Detect); Coronavirus HKU1 Not Detected (Not Detect); Coronavirus NL63 Not Detected (Not Detect); Coronavirus OC43 Not Detected (Not Detect); Human Metapneumovirus Not Detected (Not Detect); Human Rhinovirus/Enterovirus Not Detected (Not Detect); Influenza A Subtype 2009 H1 Not Detected (Not Detect); Influenza A Untypeable Not Detected (Not Detect); Influenza B Not Detected (Not Detect); Mycoplasma pneumoniae Not Detected (Not Detect); Parainfluenza Virus 1 Not Detected (Not Detect); Parainfluenza Virus 2 Not Detected (Not Detect); Parainfluenza Virus 3 Not Detected (Not Detect); Parainfluenza Virus 4 Not Detected (Not Detect); Respiratory Syncytial Virus Not Detected (Not Detect)
[2018-07-18] MEDS: Insulin LISPRO 300 UNITS/3 ML VIAL SQ SCH ×2 (12:31→16:53)
--- NOTE | 2018-07-18 12:37 | Event Note ---
Date of Encounter: 07/18/18 Time of Encounter: 09:40 H&P reviewed. Patient with history of mysthenia gravis, metastatic rectal cancer with metastases to brain, lung, liver, is admitted for fever and weakness. Exam is non-focal and there is no identifiable source of infection noted on history as well as CXR and urinalysis. One thing that the mentioned was explosive diarrhea and rash around aries-anal area (present before coming to the ED last night) that appears to be consistent with folliculitis. Will change abx to Augmentin, check RIP, and symptomatic mx. Electrolytes repleted and monitor. Neurology consulted for possible contribution from myasthenia gravis in his symptoms. If no significant improvement, may consider LP. Overall prognosis is poor.
[2018-07-18] MEDS: levETIRAcetam 250 MG TABLET PO SCH (16:53)
[2018-07-18] MEDS: *HR* Heparin 5,000 UNIT/ML VIAL SQ SCH (16:54)
--- NOTE | 2018-07-18 17:05 | Neurology - Consult Note ---
Date of Encounter: 07/18/18 Time of Encounter: 16:50 Assessment and Plan (1) Generalized weakness Current Visit: Yes Status: Acute improved. Known history of intractable, steroid dependent, IVIG dependent myasthenia gravis, rectal cancer with multiple organ metastatsis including bone, liver and brain and lung who developed fever of unknonw source, generalized weakness and a fall. Concerning for MG exacerbation. However, his symptoms started at a time when he developed brain metastasis, and likely focal seizure with right facial twitching and at a time when he was tapering down the use of steroid, in the form of Dexamethasone. This can happen with ongoing infection, steroid withdrawal or other provoking factors and in this case, brain metastasis . He also has hyperglycemia that can complicate his symptoms. He is doing a little better now, limb strength at least 4+/5, and no significant ocular deficits, although has mild dysarthria and bulbar symptoms. Management: 1. Essentially supportive and especially monitor his negative inspiratory pr essure and vital capacity, pulmonary consultation may be beneficial. ABG may not be a reliable factor in assessing acute respiratory failure. 2. Avoid medications that may aggravate Myasthenis Gravis, such as certainly antibiotics, betablokcer, calcium mil[place], it is noted that Mg can aggravate MG symptoms. 3. 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 4. Patient has headaches and no nuchal rigidity, no leukocytosis in her blood and QUALITY IMPROVEMENT COORDINATOR (RN) infection is thought to be low. Please continue medical and supportive and will follow up in AM. History of Present Illness Chief complaint: weakness, fall and fever HPI: Mr. Smith is a 67 year old male with PMH significant for myasthenia gravis, s/p thymectomy, steroid dependent, history of rectal cancer with brain, liver and spine metastasis who developed fever, leg weakness and a fall, and also facial twitching. Patient known to me and he has had repeat IVig therapy last one on 06/16/2018. Two days after the IVig therapy he developed facial twitching and went to ER and CT of head showed bran metastatsis, three separate parenchymal lesion with associated with vasogenic edema. He was started dexamethasone by his oncologist which helped her symptoms and he was then tapered down the use of steroid and last dose was Last . Per his , he developed fever, weakness in his legs one or two days prior to when the weakness in his legs worsened and when he tried to get up he had a fall. He has been clammy and diaphoretic. He was really drowsy last night and he was also having facial twitching to the right face. CT of head showed three separate brain metastatsis but improved from previous study. He recently also had gamma knife treatment at [facility]. . He has not been evaluated by neurologist since discovery of his brain metastasis. Had few days of fever but no headache, mental status today appear much improved. Has left facial droop. Patient is still on prednisone 10mg daily. His glucose level has increased since the addition of Dexamathasone. At the time of this interview patient is wide awake and he is able to breathing at flat position but relates that if he walks he will be short of breath. Hand electronics tester are equal and strong. No diplopia. speech gets slight slurred when talking more. Past Med Surg Social Fam HX - Past Medical History Medical history: cancer, diabetes, hyperlipidemia, other Additional medical history: Brain/Lung CA Psychiatric history: no psych history - Past Surgical History Surgical History: colectomy Additional surgical history: thymus removal, - Social History Smoking Status: Former smoker Smokeless Tobacco Status: No Alcohol use: none Drug use: none Medications and Allergies Citalopram Hydrobromide [Citalopram HBr] 40 mg PO DAILY 01/28/17 [History] Gabapentin [Neurontin] 300 mg PO TID 01/28/17 [History] Metformin HCl [Fortamet] 1,000 mg PO BID 01/28/17 [History] Multivit-Min/FA/Lycopen/Lutein [Centrum Silver Tablet] 1 each PO DAILY 01/28/17 [History] SitaGLIPtin [Januvia] 100 mg PO DAILY 01/28/17 [History] Ondansetron HCl [Zofran] 4 mg PO Q6H PRN #60 tablet 10/01/17 [Rx] Atorvastatin Calcium [Lipitor] 20 mg PO QPM 07/17/18 [History] Insulin Glargine,Hum.rec.anlog [Lantus Solostar] 16 unit SQ QPM 07/17/18 [History] diazePAM [Valium] 2 mg PO DAILY PRN 07/17/18 [History] predniSONE [PredniSONE] 10 mg PO DAILY 07/17/18 [History] Allergy/AdvReac Type Severity Reaction Status Date / Time azathioprine [From Imuran] AdvReac Fatigued Verified 07/08/18 09:58 All Systems: The remainder of the systems were reviewed and are negative Physical Examination - Vital Signs Vital Signs: Initial Vital Signs Temp Pulse Resp BP Pulse Ox 99.6 F 121 18 129/82 91 07/17/18 15:55 07/17/18 15:55 07/17/18 15:55 07/17/18 15:55 07/17/18 15:55 - Constitutional General appearance: chronically ill - Neurologic Sensorimotor examination: intact Motor examination - right side: 4/5: deltoids, biceps, triceps, wrist flexion, wrist extension, hip flexors, tibialis Anterior, quadriceps, toe extension (EHL), plantarflexion, 5/5: asset management analyst Motor examination - left side: 4/5: deltoids, biceps, triceps, wrist flexion, wrist extension, hip flexors, quadriceps, tibialis Anterior, toe extension (EHL), plantarflexion, 5/5: asset management analyst Detailed sensory examination: intact Posture: other (none, no nuchal rigidity) Reflex and gait examination: intact (Gait not assessed) Reflexes: Biceps: 1+, Triceps: 1+, Brachioradialis: 1+, Patella: 1+, Achilles: 1+ Mental Status Examination: awake, alert, oriented to person, oriented to place, oriented to time, follows commands appropriately, answers questions appropriately, no agnosia, no aphasia, no aproxia Cranial nerve examination: PERRL, EOMI, visual reyes intact, corneal reflexes brisk symmetrically, sensory to face intact, mastication intact, no facial asymmetry is present (left facial droop noted, alleviated when smiling), no dysarthria, hearing is intact symmetrically, soft palate elevates bilaterally upon phonation, gag reflex intact, flexes SCM and trapezius muscles symmetrically with full power, tongue protrudes midline, no atrophy or facial fasiculations present Results - Laboratory Findings CBC and BMP: 07/18/18 04:25 07/18/18 05:46 Abnormal lab findings: Abnormal lab results RBC 4.04 M/mcL (4.19-5.50) L 07/18/18 04:25 Hgb 12.6 g/dL (12.9-16.9) L 07/18/18 04:25 Sodium 135 mEq/L (136-145) L 07/18/18 05:46 Glucose 174 mg/dL (70-105) H 07/18/18 05:46 Calcium 7.9 mg/dL (8.6-10.3) L 07/18/18 05:46 Phosphorus 2.0 mg/dL (2.7-4.5) L 07/17/18 16:05 Magnesium 1.2 mg/dL (1.6-2.6) L 07/17/18 16:05 Alkaline Phosphatase 117 Units/L (34-104) H 07/17/18 16:05 Serum Total Protein 5.8 g/dL (6.4-8.9) L 07/17/18 16:05 Albumin 2.9 g/dL (3.5-5.7) L 07/17/18 16:05 Albumin/Globulin Ratio 1.0 (1.1-2.2) L 07/17/18 16:05 Ur Specific [place] 1.009 (1.010-1.025) L 07/17/18 17:55 Urine Urobilinogen 4.0 mg/dL (Normal) H 07/17/18 17:55 Ur Squamous Epith Cells Many per lpf (None-Few) H 07/17/18 17:55 - Diagnostic Findings Additional findings: CT OF THE HEAD WITHOUT CONTRAST 07/17/2018 8:48 pm TECHNIQUE: CT of the head was performed without the administration of intravenous contrast. Dose modulation, iterative reconstruction, and/or weight based adjustment of the mA/kV was utilized to reduce the radiation dose to as low as reasonably achievable. COMPARISON: None HISTORY: ORDERING SYSTEM PROVIDED HISTORY: face twitching; h/o of brain bleed w prior episode Two-day history of symptoms. History of rectal and lung cancer. FINDINGS: BRAIN/VENTRICLES: There is redemonstration of at least for metastatic lesions within the brain, all of increased attenuation. These include a lesion in the right frontal lobe at the corticomedullary junction measuring 2.4 x 1.8 cm, a parafalcine high parietal lesion measuring 1.3 x 1.5 cm on the left, a posterior occipital lesion on the left measuring 0.8 cm in diameter and a left cerebellar lesion measuring 1 cm in diameter. Lesions are grossly stable in size. There is decreased vasogenic edema surrounding in particular the right frontal lesion. No new lesions or significant mass effect. Mild decreased attenuation in the periventricular and subcortical white matter. There is no acute intracranial hemorrhage, mass effect or midline shift. No abnormal extra-axial fluid collection. The siddiqi-white differentiation is maintained without evidence of an acute infarct. There is no evidence of hydrocephalus. ORBITS: The visualized portion of the orbits demonstrate no acute abnormality. SINUSES: There is opacification of the right ethmoid air cells and sphenoid sinus. The remainder of the visualized paranasal sinuses and mastoid air cells are clear. SOFT TISSUES/SKULL: No acute abnormality of the visualized skull or soft tissues. CT/CT head/brain wo con IMPRESSION: Redemonstration of high attenuation metastatic lesions within the brain as described above. Decreased vasogenic edema associated with the largest lesion in the right frontal lobe. No significant mass effect. Otherwise no acute intracranial abnormality. D/ : / 07/17/2018 21:10:57 Thanh Haider MD / rosina Interpreting Provider: Thanh Haider MD Consult Discharge Plan - Plan Referrals: Cuco Wilson MD [Primary Care Provider] -
--- NOTE | 2018-07-18 19:46 | Electrocardiograph Report ---
[place] [id number] Test Date: 2018-07-17 Pat Name: Thanh Smith Department: EXAM10 Room: [facility] Gender: M Records Analysis Manager: : 1950 Requested By: Jasmine Barbour Order Number: [id number] Reading MD: Cheng Dubon Measurements Intervals [place] Rate: 111 P: 60 [place]: 188 QRS: 75 QRSD: 95 T: -49 QT: 311 QTc: 423 Interpretive Statements Sinus tachycardia Left atrial enlargement Nonspecific T abnormalities, diffuse leads Electronically Signed On 07-18-2018 19:44:19 EDT by Cheng Dubon
[2018-07-18] MEDS ORDERED: Insulin LISPRO 300 UNITS/3 ML VIAL SQ SCH (21:00)
[2018-07-18] MEDS: Insulin DETEMIR 100 UNIT/ML X5UNITS SQ SCH (23:20)
[2018-07-19] MEDS: Acetaminophen 325 MG TABLET PO PRN ×2 (00:38→11:47)
[2018-07-19 06:05] LABS: Hematocrit 36.6 % (37.5-50.1); Hemoglobin 12.3 g/dL (12.9-16.9); Mean Corpuscular HGB Conc 33.6 g/dL (31.6-35.5); Mean Corpuscular Hemoglobin 31.5 pg (28.0-33.3); Mean Corpuscular Volume 93.6 fL (83.0-100.0); Mean Platelet Volume 9.8 fL (9.4-12.4); Platelet Count 162 K/mcL (140-400); Red Blood Count 3.91 M/mcL (4.19-5.50); Red Cell Distribution Width 12.5 % (11.5-14.5)
[2018-07-19] MEDS: *HR* Heparin 5,000 UNIT/ML VIAL SQ SCH ×2 (06:21→16:31)
[2018-07-19] MEDS: levETIRAcetam 250 MG TABLET PO SCH ×2 (06:21→16:31)
[2018-07-19 06:25] LABS: Alanine Aminotransferase 45 Units/L (7-52); Albumin 2.6 g/dL (3.5-5.7); Alkaline Phosphatase 132 Units/L (34-104); Aspartate Amino Transferase 41 Units/L (13-39); BUN/Creatinine Ratio 17 (6-26); Bilirubin,Total 0.9 mg/dL (0.3-1.0); Blood Urea Nitrogen 12 mg/dL (8-23); Calcium 8.3 mg/dL (8.6-10.3); Carbon Dioxide 30 mEq/L (23-29); Chloride 100 mEq/L (98-107); Globulin 2.6 g/dL (2.4-3.5); Glucose 213 mg/dL (70-105); Osmolality,Calculated 286 (280-300); Potassium 3.8 mEq/L (3.5-5.1); Sodium 135 mEq/L (136-145); Total Protein 5.2 g/dL (6.4-8.9); eGFR For Non-African Americans > 60 (> 60)
[2018-07-19 06:26] LABS: Magnesium 1.4 mg/dL (1.6-2.6); Phosphorous 2.4 mg/dL (2.7-4.5)
[2018-07-19] MEDS ORDERED: Potassium Phosphate 44 MEQ in 0.9 % Sodium Chloride 250 ML IVPB ONE (07:38)
[2018-07-19] MEDS: predniSONE 10 MG TABLET PO SCH (08:29)
[2018-07-19] MEDS: Gabapentin 300 MG CAPSULE PO SCH ×3 (08:29→21:57)
--- NOTE | 2018-07-19 10:38 | Internal Med Progress Note ---
Hospitalist Progress Note - Encounter Date of Encounter: 07/19/18 Time of Encounter: 09:30 - Subjective Interval History: States that he feels much stronger today. After being started on PO Augmentin, 1 episode of temp 99.9 overnight. No focal weakness/numbness, shortness of breath, or neck stiffness. - Exam Vitals: Temp Pulse Resp BP Pulse Ox 97.9 F 120 16 111/70 88 07/19/18 07:43 07/19/18 07:43 07/19/18 07:43 07/19/18 07:43 07/19/18 07:43 Exam: General: Alert and oriented, not in acute distress. Cardiovascular:Normal S1 & S2, No JVD. Pulse regular. Lungs: clear to auscultation, no wheezes/rales Abdomen:Soft, non-tender, no rigidity. Extremities:No deformity or swelling Neurological: power 4/5 in all 4 limbs, no loss of sensation. No nuchal rigidity. Cranial nerves also grossly intact Skin: rash over the buttocks that resemble folliculitis -> slightly improving - Assessment and Plan (1) SIRS (systemic inflammatory response syndrome) Current Visit: Yes Status: Acute Assessment and Plan: No obvious foci of infection noted on chest x-ray and urinalysis. Exam only significant for buttock rash that appears to be consistent with folliculitis started on Augmentin, continue PRN tylenol (2) Folliculitis Current Visit: Yes Status: Acute Assessment and Plan: Antibiotics as above (3) Myasthenia gravis Current Visit: Yes Status: Chronic Assessment and Plan: History of intractable, steroid-dependent, IVIG dependent myasthenia gravis. follow with Neurology (4) Hypomagnesemia Current Visit: Yes Status: Acute Assessment and Plan: Replete (5) Hypophosphatemia Current Visit: Yes Status: Acute Assessment and Plan: Replete (6) Adrenal insufficiency Current Visit: No Status: Acute Assessment and Plan: No evidence of adrenal crisis continue home dose of prednisone (7) 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 Current Visit: No Status: Chronic Assessment and Plan: His chronic dyspnea is likely related to the increasing burden of his metastatic disease poor prognosis (8) Type 2 diabetes mellitus Current Visit: No Status: Chronic Assessment and Plan: Resume home dose of Levemir, continue sliding scale coverage but increase to moderate dose ADA diet DVT Prophylaxis: Subcutaneous heparin - Time Spent with Patient Total time spent is greater than 50% in coordination of care (as documented) at patient's floor/unit and/or counseling patient: Plan of Care Discussed with: patient Internal Medicine: Result - Labs CBC & Chem 7: 07/19/18 05:37 07/19/18 05:37 Labs: Short CBC 07/19/18 Range/Units 05:37 WBC 5.2 (4.3-11.1) K/mcL Hgb 12.3 L (12.9-16.9) g/dL Hct 36.6 L (37.5-50.1) % Plt Count 162 (140-400) K/mcL BMP 07/19/18 05:37 Sodium 135 L Potassium 3.8 Chloride 100 Carbon Dioxide 30 H BUN 12 Creatinine 0.71 Glucose 213 H Calcium 8.3 L Liver Function 07/19/18 Range/Units 05:37 Total Bilirubin 0.9 (0.3-1.0) mg/dL AST 41 H (13-39) Units/L ALT 45 (7-52) Units/L Alkaline Phosphatase 132 H (34-104) Units/L Albumin 2.6 L (3.5-5.7) g/dL - Impressions Impressions Chest X-Ray 07/17/18 17:29 IMPRESSION: Stable to slight interval decrease in size of pulmonary masses bilaterally some of which could be related to difference in imaging technique, when compared to 06/10/[address] Right basilar atelectasis or scarring. Other acute cardiopulmonary findings. D/ /17/2018 18:26:05 Britta Velasquez MD / rosina Interpreting Provider: Britta Velasquez MD Head CT 07/17/18 19:08 IMPRESSION: Redemonstration of high attenuation metastatic lesions within the brain as described above. Decreased vasogenic edema associated with the largest lesion in the right frontal lobe. No significant mass effect. Otherwise no acute intracranial abnormality. D/ /17/2018 21:10:57 Thanh Haider MD / rosina Interpreting Provider: Thanh Haider MD Consult Discharge Plan - Plan Referrals: Cuco Wilson MD [Primary Care Provider] - (8) Type 2 diabetes mellitus Qualifiers: Diabetes mellitus jail insulin use: without oil heaterman use Diabetes mellitus complication status: without complication Qualified Code(s): E11.9 - Type 2 diabetes mellitus without complications
[2018-07-19] MEDS: Insulin LISPRO 300 UNITS/3 ML VIAL SQ SCH ×3 (11:47→21:58)
--- NOTE | 2018-07-19 12:33 | Neurology Progress Note ---
Date of Encounter: 07/19/18 Time of Encounter: 12:30 Assessment and Plan (1) Generalized weakness Current Visit: Yes Status: Acute Patient is improving and currently no ocular bulbar symptoms and no focal limb weakness, although did not walk him today, is able to lift leg off the bed with muscle strength at 4+/5. No significant myasthenia gravis. So will not recommend IV steroid therapy at this time. 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 So will recommend continuing medical and supportive care No recurrent facial twitching, continue keppra 500mg bid, as prophylactic therapy for focal seizures Subjective Principal diagnosis: Weakness and fever Interval history: Patient seen and examined. he is feeling better and eating much better today. Stronger but has not been up and walking yet. No focal weakness. No difficulty swallowing, no double vision, no breathing difficulty. No headaches. Had a slight fever this morning. No nuchal rigidity. no confusion Started Keppra last night no seizures and no twitching noted. Able to tolerate the medicine no difficulty Objective - Constitutional Vitals: Temp Pulse Resp BP Pulse Ox 101.1 F H 114 17 114/74 91 07/19/18 11:29 07/19/18 11:29 07/19/18 11:29 07/19/18 11:29 07/19/18 11:29 - Neurological Exam Sensorimotor examination: Present: intact Motor examination - right side: 5/5: deltoids, biceps, triceps, wrist flexion, wrist extension, balancer, hip flexors, tibialis Anterior, quadriceps, toe extension (EHL), plantarflexion Motor examination - left side: 5/5: deltoids, biceps, triceps, wrist flexion, wrist extension, hip flexors, balancer, quadriceps, tibialis Anterior, toe extension (EHL), plantarflexion Sensation intact: Present: intact Posture: Present: other (none, no nuchal rigidity) Reflex and gait examination: intact (Gait not assessed) Reflexes: Biceps: 1+, Triceps: 1+, Brachioradialis: 1+, Patella: 1+, Achilles: 1+ Mental Status Examination: Present: awake, alert, oriented to person, oriented to place, oriented to time, follows commands appropriately, answers questions appropriately, no agnosia, no aphasia, no aproxia Cranial nerve examination: Present: PERRL, EOMI, visual reyes intact, corneal reflexes brisk symmetrically, sensory to face intact, mastication intact, no facial asymmetry is present (left facial droop noted, alleviated when smiling), no dysarthria, hearing is intact symmetrically, soft palate elevates bilaterally upon phonation, gag reflex intact, flexes SCM and trapezius muscles symmetrically with full power, tongue protrudes midline, no atrophy or facial fasiculations present Results - Laboratory Findings CBC and BMP: 07/19/18 05:37 07/19/18 05:37 Abnormal lab findings: Abnormal lab results RBC 3.91 M/mcL (4.19-5.50) L 07/19/18 05:37 Hgb 12.3 g/dL (12.9-16.9) L 07/19/18 05:37 Hct 36.6 % (37.5-50.1) L 07/19/18 05:37 Sodium 135 mEq/L (136-145) L 07/19/18 05:37 Carbon Dioxide 30 mEq/L (23-29) H 07/19/18 05:37 Glucose 213 mg/dL (70-105) H 07/19/18 05:37 POC Glucose 156 mg/dL (70-99) H 07/19/18 07:51 Calcium 8.3 mg/dL (8.6-10.3) L 07/19/18 05:37 Phosphorus 2.4 mg/dL (2.7-4.5) L 07/19/18 05:37 Magnesium 1.4 mg/dL (1.6-2.6) L 07/19/18 05:37 AST 41 Units/L (13-39) H 07/19/18 05:37 Alkaline Phosphatase 132 Units/L (34-104) H 07/19/18 05:37 Serum Total Protein 5.2 g/dL (6.4-8.9) L 07/19/18 05:37 Albumin 2.6 g/dL (3.5-5.7) L 07/19/18 05:37 Albumin/Globulin Ratio 1.0 (1.1-2.2) L 07/19/18 05:37 Ur Specific [place] 1.009 (1.010-1.025) L 07/17/18 17:55 Urine Urobilinogen 4.0 mg/dL (Normal) H 07/17/18 17:55 Ur Squamous Epith Cells Many per lpf (None-Few) H 07/17/18 17:55 Consult Discharge Plan - Plan Referrals: Cuco Wilson MD [Primary Care Provider] -
[2018-07-19] MEDS ORDERED: Insulin LISPRO 300 UNITS/3 ML VIAL SQ SCH (21:00)
[2018-07-19] MEDS: Insulin DETEMIR 100 UNIT/ML X5UNITS SQ SCH (21:57)
[2018-07-20 04:58] LABS: Basophils % 0.5 %; Eosinophils % 0.2 %; Hemoglobin 12.2 g/dL (12.9-16.9); Immature Granulocytes % 1.3 % (0-4); Lymphocytes # 0.5 K/mcL (0.6-4.6); Lymphocytes % 8.4 %; Mean Corpuscular HGB Conc 33.9 g/dL (31.6-35.5); Mean Corpuscular Hemoglobin 31.7 pg (28.0-33.3); Mean Corpuscular Volume 93.5 fL (83.0-100.0); Mean Platelet Volume 9.6 fL (9.4-12.4); Monocytes # 0.4 K/mcL (0.0-1.3); Monocytes % 6.2 %; Neutrophils # 5.1 K/mcL (1.6-8.9); Platelet Count 168 K/mcL (140-400); Red Blood Count 3.85 M/mcL (4.19-5.50); Red Cell Distribution Width 12.5 % (11.5-14.5); Segmented Neutrophils % 83.4 %
[2018-07-20 05:16] LABS: BUN/Creatinine Ratio 22 (6-26); Blood Urea Nitrogen 16 mg/dL (8-23); Calcium 8.2 mg/dL (8.6-10.3); Carbon Dioxide 28 mEq/L (23-29); Chloride 99 mEq/L (98-107); Glucose 75 mg/dL (70-105); Magnesium 1.6 mg/dL (1.6-2.6); Osmolality,Calculated 284 (280-300); Phosphorous 3.5 mg/dL (2.7-4.5); Potassium 3.6 mEq/L (3.5-5.1); Sodium 137 mEq/L (136-145); eGFR For Non-African Americans > 60 (> 60)
[2018-07-20] MEDS: levETIRAcetam 250 MG TABLET PO SCH ×2 (06:05→16:59)
[2018-07-20] MEDS: *HR* Heparin 5,000 UNIT/ML VIAL SQ SCH ×2 (06:06→16:59)
[2018-07-20] MEDS: predniSONE 10 MG TABLET PO SCH (07:34)
[2018-07-20] MEDS: Acetaminophen 325 MG TABLET PO PRN (07:34)
[2018-07-20] MEDS: Insulin LISPRO 300 UNITS/3 ML VIAL SQ SCH ×4 (07:35→21:34)
[2018-07-20] MEDS: Gabapentin 300 MG CAPSULE PO SCH ×3 (07:35→21:35)
--- NOTE | 2018-07-20 11:07 | Internal Med Progress Note ---
Hospitalist Progress Note - Encounter Date of Encounter: 07/20/18 Time of Encounter: 10:15 - Subjective Interval History: No acute events overnight. 1 temp reading of 101.1 at 1130 am but afebrile since then with improvement in his tachycardia. No focal weakness/numbness, shortness of breath, or neck stiffness. No significant change in his rash reported. - Exam Vitals: Temp Pulse Resp BP Pulse Ox 98.1 F 109 16 115/77 91 07/20/18 07:19 07/20/18 07:19 07/20/18 07:19 07/20/18 07:19 07/20/18 07:19 Exam: General: Alert and oriented, not in acute distress. Cardiovascular:Normal S1 & S2, No JVD. Pulse regular. Lungs: clear to auscultation, no wheezes/rales Abdomen:Soft, non-tender, no rigidity. Extremities:No deformity or swelling Neurological: power 4/5 in all 4 limbs, no loss of sensation. No nuchal rigidity. Cranial nerves also grossly intact Skin: rash over the buttocks that resemble folliculitis but also with well demarcated margins -> no significant change noted. Has similar rash over the plantar aspect of L foot and near the Achilles tendon insertion on the right - Assessment and Plan (1) SIRS (systemic inflammatory response syndrome) Current Visit: Yes Status: Acute Assessment and Plan: No obvious foci of infection noted on chest x-ray and urinalysis. Exam only significant for rash over the buttock and now on L foot and R ankle ?folliculitis clinically improved on Augmentin although he had 1 episode of temp 101.1 at 1130am yesterday PRN tylenol if he remains afebrile today, may be able to be discharged tomorrow (2) Folliculitis Current Visit: Yes Status: Acute Assessment and Plan: Antibiotics as above upon reviewing the morphology of rash, with his dx of cancer, it may be related to paraneoplastic dermatoses ?erythema gyratum repens may benefit from dermatology eval tomorrow (3) Myasthenia gravis Current Visit: Yes Status: Chronic Assessment and Plan: History of intractable, steroid-dependent, IVIG dependent myasthenia gravis. 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 Current Visit: No Status: Chronic Assessment and Plan: His chronic dyspnea is likely related to the increasing burden of his metastatic disease poor prognosis (8) Type 2 diabetes mellitus Current Visit: No Status: Chronic Assessment and Plan: Resume home dose of Levemir, will further increase his sliding scale coverage to high dose in view of persistently elevated premeal readings ADA diet DVT Prophylaxis: Subcutaneous heparin - Time Spent with Patient Total time spent is greater than 50% in coordination of care (as documented) at patient's floor/unit and/or counseling patient: Plan of Care Discussed with: patient Internal Medicine: Result - Labs CBC & Chem 7: 07/20/18 04:33 07/20/18 04:33 Labs: Short CBC 07/20/18 Range/Units 04:33 WBC 6.1 (4.3-11.1) K/mcL Hgb 12.2 L (12.9-16.9) g/dL Hct 36.0 L (37.5-50.1) % Plt Count 168 (140-400) K/mcL Neutrophils # 5.1 (1.6-8.9) K/mcL BMP 07/20/18 04:33 Sodium 137 Potassium 3.6 Chloride 99 Carbon Dioxide 28 BUN 16 Creatinine 0.72 Glucose 75 Calcium 8.2 L Consult Discharge Plan - Plan Referrals: Cuco Wilson MD [Primary Care Provider] - (8) Type 2 diabetes mellitus Qualifiers: Diabetes mellitus correction insulin use: without terminal operator use Diabetes mellitus complication status: without complication Qualified Code(s): E11.9 - Type 2 diabetes mellitus without complications
--- NOTE | 2018-07-20 17:19 | Neurology Progress Note ---
Date of Encounter: 07/20/18 Time of Encounter: 17:17 Assessment and Plan (1) Generalized weakness Current Visit: Yes Status: Acute Patient is improving and currently no ocular bulbar symptoms and no focal limb weakness, although did not walk him today, is able to lift leg off the bed with muscle strength at 4+/5. No significant myasthenia gravis. So will not recommend IV steroid therapy at this time. No headaches, no nuchal rigidity, and no confusion so CELL ATTENDANT infection unlikely. So will recommend continuing medical and supportive care No recurrent facial twitching, continue keppra 500mg bid, as prophylactic therapy for focal seizures Continue prednisone 10mg daily. Subjective Principal diagnosis: Weakness and fever Interval history: Patient seen and examined. He is feeling improved but still very tired today. No diplopia, no swallowing or speech difficulty. No limb weakness and no breathing difficulty. Is able to lay flat at night and no SOB. Since the start of the kepp ra 500mg bid he has not had any facial twitching activity. Is still on Prednisone 10mg daily. Has remained afebrile today. 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 operator, quadriceps, tibialis Anterior, toe extension (EHL), plantarflexion Sensation intact: Present: intact Posture: Present: other (none, no nuchal rigidity) Reflex and gait examination: intact (Gait not assessed) Mental Status Examination: Present: awake, alert, oriented to person, oriented to place, oriented to time, follows commands appropriately, answers questions appropriately, no agnosia, no aphasia, no aproxia Cranial nerve examination: Present: PERRL, EOMI, visual reyes intact, corneal reflexes brisk symmetrically, sensory to face intact, mastication intact, no facial asymmetry is present (left facial droop noted, alleviated when smiling), no dysarthria, hearing is intact symmetrically, soft palate elevates bilaterally upon phonation, gag reflex intact, flexes SCM and trapezius muscles symmetrically with full power, tongue protrudes midline, no atrophy or facial fasiculations present Results - Laboratory Findings CBC and BMP: 07/20/18 04:33 07/20/18 04:33 Abnormal lab findings: Abnormal lab results RBC 3.85 M/mcL (4.19-5.50) L 07/20/18 04:33 Hgb 12.2 g/dL (12.9-16.9) L 07/20/18 04:33 Hct 36.0 % (37.5-50.1) L 07/20/18 04:33 Lymphocytes # 0.5 K/mcL (0.6-4.6) L 07/20/18 04:33 POC Glucose 316 mg/dL (70-99) H 07/20/18 16:35 Calcium 8.2 mg/dL (8.6-10.3) L 07/20/18 04:33 AST 41 Units/L (13-39) H 07/19/18 05:37 Alkaline Phosphatase 132 Units/L (34-104) H 07/19/18 05:37 Serum Total Protein 5.2 g/dL (6.4-8.9) L 07/19/18 05:37 Albumin 2.6 g/dL (3.5-5.7) L 07/19/18 05:37 Albumin/Globulin Ratio 1.0 (1.1-2.2) L 07/19/18 05:37 Ur Specific [place] 1.009 (1.010-1.025) L 07/17/18 17:55 Urine Urobilinogen 4.0 mg/dL (Normal) H 07/17/18 17:55 Ur Squamous Epith Cells Many per lpf (None-Few) H 07/17/18 17:55 Consult Discharge Plan - Plan Referrals: Cuco Wilson MD [Primary Care Provider] -
[2018-07-20] MEDS: GuaiFENesin Liq 200 MG/10 ML UDC PO PRN (18:28)
[2018-07-20] MEDS: Insulin DETEMIR 100 UNIT/ML X5UNITS SQ SCH (21:34)
--- NOTE | 2018-07-21 01:37 | Event Note ---
Date of Encounter: 07/21/18 Time of Encounter: 21:00 Notified by nurse of patient oxygen saturations dropping requiring increased oxygen. Assessed patient at bedside. Ordered xray which shows possible new right sided pneumonia. Discussed with Dr Ocasio, will repeat blood cultures and start on IV Vancomycin and Zosyn.
[2018-07-21 02:13] LABS: Hematocrit 34.7 % (37.5-50.1); Hemoglobin 11.7 g/dL (12.9-16.9); Mean Corpuscular HGB Conc 33.7 g/dL (31.6-35.5); Mean Corpuscular Hemoglobin 31.7 pg (28.0-33.3); Mean Platelet Volume 9.6 fL (9.4-12.4); Platelet Count 177 K/mcL (140-400); Red Blood Count 3.69 M/mcL (4.19-5.50); Red Cell Distribution Width 12.5 % (11.5-14.5)
[2018-07-21 02:30] LABS: BUN/Creatinine Ratio 24 (6-26); Blood Urea Nitrogen 20 mg/dL (8-23); Calcium 8.4 mg/dL (8.6-10.3); Carbon Dioxide 29 mEq/L (23-29); Chloride 101 mEq/L (98-107); Glucose 125 mg/dL (70-105); Osmolality,Calculated 288 (280-300); Potassium 3.9 mEq/L (3.5-5.1); Sodium 137 mEq/L (136-145); eGFR For Non-African Americans > 60 (> 60)
[2018-07-21] MEDS: *HR* Heparin 5,000 UNIT/ML VIAL SQ SCH ×2 (06:48→17:22)
[2018-07-21] MEDS: levETIRAcetam 250 MG TABLET PO SCH ×2 (06:48→17:22)
[2018-07-21] MEDS: Insulin LISPRO 300 UNITS/3 ML VIAL SQ SCH ×4 (08:23→21:39)
[2018-07-21] MEDS: Piperacillin/Tazobactam 3.375 GM in 0.9 % Sodium Chloride Mini Bag 100 ML IVPB SCH ×2 (08:26→16:10)
[2018-07-21] MEDS: predniSONE 10 MG TABLET PO SCH (08:28)
[2018-07-21] MEDS: Acetaminophen 325 MG TABLET PO PRN (08:28)
[2018-07-21] MEDS: Gabapentin 300 MG CAPSULE PO SCH ×3 (08:28→20:10)
--- NOTE | 2018-07-21 13:34 | Internal Med Progress Note ---
Hospitalist Progress Note - Encounter Date of Encounter: 07/21/18 Time of Encounter: 13:34 - Subjective Interval History: Pt's at bedside. He denies fever, chills, N/V or diarrhea. Temp this am was 103. He denies chest pain and SOB new on this admission. He denies being on home oxygen. - Exam Vitals: Temp Pulse Resp BP Pulse Ox 98.9 F 101 16 100/66 95 07/21/18 11:26 07/21/18 11:26 07/21/18 11:26 07/21/18 11:26 07/21/18 11:26 Exam: General: Alert and oriented, not in acute distress. Cardiovascular:Normal S1 & S2, No JVD. Pulse regular. Lungs: clear to auscultation, no wheezes/rales Abdomen:Soft, non-tender, no rigidity. Extremities:No deformity or swelling Neurological: power 4/5 in all 4 limbs, no loss of sensation. No nuchal rigidity. Cranial nerves also grossly intact Skin: rash over the buttocks that resemble folliculitis but also with well conor rcated margins -> no significant change noted. Has similar rash over the plantar aspect of L foot and near the Achilles tendon insertion on the right - Assessment and Plan (1) Sepsis Current Visit: Yes Status: Acute Assessment and Plan: Due to PNA. No obvious sign of infection noted on chest x-ray and urinalysis on admission. Repeat chest x ray done 07/20/2018 due to worsening SOB and showed increasing consolidation R lung concerning for PNA. Exam only significant for rash over the buttock and now on L foot and R ankle ?folliculitis Was initially placed on Augmentin which was switched to Vancomycin and Zosyn due to persistent febrile episodes. Temp this am 103. Repeat cultures ordered by assembler lay ups. Continue PRN tylenol. (2) Pneumonia Current Visit: Yes Status: Acute Assessment and Plan: No obvious sign of infection noted on chest x-ray on admission. Repeat chest x ray done 07/20/2018 due to worsening SOB and showed increasing consolidation R lung concerning for PNA. Was initially placed on Augmentin which was switched to Vancomycin and Zosyn due to persistent febrile episodes. Temp this am 103. Repeat cultures ordered by assembler lay ups. Continue PRN tylenol. Respiratory panel negative. Will check sputum culture as well if pt is able to give a sample but pt states cough is mostly dry. (3) 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 Current Visit: No Status: Chronic Assessment and Plan: His progressive dyspnea is likely related to the increasing burden of his metastatic disease prognosis, poor (4) Myasthenia gravis Current Visit: Yes Status: Chronic Assessment and Plan: History of intractable, steroid-dependent, IVIG dependent myasthenia gravis. follow with Neurology (5) Type 2 diabetes mellitus Current Visit: No Status: Chronic Assessment and Plan: Resume home dose of Levemir 16 units QHS, Sliding scale coverage increased to high dose in view of persistently elevated premeal readings. Glucose better controlled. ADA diet (6) Adrenal insufficiency Current Visit: No Status: Acute Assessment and Plan: No evidence of adrenal crisis continue home dose of prednisone (7) Hypomagnesemia Current Visit: Yes Status: Resolved Assessment and Plan: corrected after repletion (8) Hypophosphatemia Current Visit: Yes Status: Resolved Assessment and Plan: corrected after repletion (9) Folliculitis Current Visit: Yes Status: Acute Assessment and Plan: Antibiotics as above Per previous hospitalist, upon reviewing the morphology of rash, with his dx of cancer, it may be related to paraneoplastic dermatoses ?erythema gyratum repens. May benefit from dermatology evaluation out pt. DVT Prophylaxis: Heparin - Summary of Assessment and Plan Summary of Assessment and Plan: History of present illness: Dr. Huang Mr. Smith is a 67 year old male Patient presented to the ER with 2 day history of weakness that has gradually be en worsening. Of note patient has a history of myasthenia gravis, as well as metastatic rectal cancer with metastasis to brain, lung and liver. He states that this morning he fell, and could not get up, requiring his to call the ambulance, who then transported him to the ER. He has had weakness before, but never quite this bad. In the ER patient was found to be afebrile, tachycardic but otherwise vitals were within normal limits. A CBC and BMP were within normal limits. Phosphate and magnesium were found to be low however. Chest x-ray was stable. A head CT was ordered due to concerns from the patient's family regarding possible brain bleed showed metastatic lesions but no mass effect or other acute intracranial abnormality. The ER discussed with the patient and his family goals of care, and they confirmed that the patient was [id number]. He was then admitted for further management of his fevers and weakness. Upon my assessment, patient appears groggy, but is arousable. He answers questions appropriately but does take time to think about answers. He indicates that he has soft stools, but not diarrhea. No nausea, vomiting, chest pain, cough, joint pain, or abdominal pain. He sees oncology outpatient, recently had cyberknife surgery and is not currently on chemotherapy. He takes IVIG for his myasthenia gravis as well as daily steroids. He follow up with neurology for this. - Time Spent with Patient Total time spent is greater than 50% in coordination of care (as documented) at patient's floor/unit and/or counseling patient: less than 15 minutes Plan of Care Discussed with: family Internal Medicine: Result - Labs CBC & Chem 7: 07/21/18 01:59 07/21/18 01:59 Labs: Short CBC 07/21/18 Range/Units 01:59 WBC 5.5 (4.3-11.1) K/mcL Hgb 11.7 L (12.9-16.9) g/dL Hct 34.7 L (37.5-50.1) % Plt Count 177 (140-400) K/mcL BMP 07/21/18 01:59 Sodium 137 Potassium 3.9 Chloride 101 Carbon Dioxide 29 BUN 20 Creatinine 0.82 Glucose 125 H Calcium 8.4 L - Impressions Impressions Chest X-Ray 07/20/18 21:55 IMPRESSION: 1. Bilateral pulmonary masses with increasing consolidation in the right lung concerning for pneumonia or congestive heart failure change on a background of diffuse malignancy. 2. Calcific atherosclerosis aorta. 3. Cardiomegaly. D/ / Ronnie Lau / Ronnie Lau Interpreting Provider: Ronnie Lau Consult Discharge Plan - Plan Referrals: Cuco Wilson MD [Primary Care Provider] - _ (1) Sepsis Qualifiers: Sepsis type: sepsis due to unspecified organism Qualified Code(s): A41.9 - Sepsis, unspecified organism (5) Type 2 diabetes mellitus Qualifiers: Diabetes mellitus correction insulin use: without local intermodal truck driver use Diabetes mellitus complication status: without complication Qualified Code(s): E11.9 - Type 2 diabetes mellitus without complications
[2018-07-21] MEDS: GuaiFENesin Liq 200 MG/10 ML UDC PO PRN (17:24)
[2018-07-21] MEDS: Insulin DETEMIR 100 UNIT/ML X5UNITS SQ SCH (21:40)
[2018-07-22] MEDS: Piperacillin/Tazobactam 3.375 GM in 0.9 % Sodium Chloride Mini Bag 100 ML IVPB SCH ×3 (00:12→15:26)
[2018-07-22] MEDS: Acetaminophen 325 MG TABLET PO PRN ×3 (05:22→22:39)
[2018-07-22] MEDS: levETIRAcetam 250 MG TABLET PO SCH ×2 (05:58→17:51)
[2018-07-22] MEDS: *HR* Heparin 5,000 UNIT/ML VIAL SQ SCH ×2 (05:58→17:51)
[2018-07-22] MEDS: predniSONE 10 MG TABLET PO SCH (08:31)
[2018-07-22] MEDS: Gabapentin 300 MG CAPSULE PO SCH ×3 (08:31→20:44)
[2018-07-22] MEDS: Insulin LISPRO 300 UNITS/3 ML VIAL SQ SCH ×4 (08:48→20:43)
[2018-07-22] MEDS: GuaiFENesin Liq 200 MG/10 ML UDC PO PRN ×2 (12:05→17:51)
[2018-07-22] MEDS: Insulin DETEMIR 100 UNIT/ML X5UNITS SQ SCH (20:45)
[2018-07-22] MEDS ORDERED: traMADol 50 MG TABLET PO PRN (23:07)
--- NOTE | 2018-07-22 23:21 | Internal Med Progress Note ---
Hospitalist Progress Note - Encounter Date of Encounter: 07/22/18 Time of Encounter: 19:00 - Subjective Interval History: SUBJECTIVE: The patient feels a little bit better. However, he continues to have supplemental oxygen at 6 L/min nasal cannula (was not using it at home). He continues to have mild cough but not wheezing. Denies chest pain. Denies abdominal pain, nausea and vomiting. He has normal urination. The patient continues to have overwhelming weakness. 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 Skin: Free of rash and discoloration. ENMT: Oral/pharyngeal mucosa is normal in appearance. Eyes: Sclera is white. There is no discharge from eyes. Respiratory: Normal breath sounds; no crackles or wheezes. CV: Heart is regular; no gallop or murmur. GI: Abdomen is soft and not tender. There is no palpable mass or visceromegaly. Neuro: There is no focal deficits. ADDITIONAL DATA: Chest x-ray shows developing right-sided pneumonia. ASSESSMENT AND PLAN: Pneumonia/acute hypoxic respiratory failure. We will continue IV vancomycin and IV Zosyn. He is immunocompromised due to his advanced rectal cancer; has underlying type 2 diabetes mellitus. Myasthenia gravis/chronic adrenal insufficiency. We will continue he is pred nisone at 10 mg by mouth daily. Neurology is consulted. Weakness. It is secondary to problems mentioned above. Type 2 diabetes mellitus. Under fair control. We will continue diabetic diet, insulin Levemir and when necessary insulin Humalog. 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 Current Visit: No Status: Chronic (7) Type 2 diabetes mellitus Current Visit: No Status: Chronic (8) Hypomagnesemia Current Visit: Yes Status: Resolved (9) Hypophosphatemia Current Visit: Yes Status: Resolved - Time Spent with Patient Total time spent is greater than 50% in coordination of care (as documented) at patient's floor/unit and/or counseling patient: 25 - 35 minutes Plan of Care Discussed with: patient Internal Medicine: Result - Labs CBC & Chem 7: 07/21/18 01:59 07/21/18 01:59 Consult Discharge Plan - Plan Referrals: Cuco Wilson MD [Primary Care Provider] - __ (7) Type 2 diabetes mellitus Qualifiers: Diabetes mellitus long term care pharmacist insulin use: without nursing home use Diabetes mellitus complication status: without complication Qualified Code(s): E11.9 - Type 2 diabetes mellitus without complications
[2018-07-23] MEDS: Piperacillin/Tazobactam 3.375 GM in 0.9 % Sodium Chloride Mini Bag 100 ML IVPB SCH ×4 (00:42→15:08)
[2018-07-23] MEDS: levETIRAcetam 250 MG TABLET PO SCH ×2 (05:30→17:07)
[2018-07-23] MEDS: *HR* Heparin 5,000 UNIT/ML VIAL SQ SCH ×2 (05:30→17:07)
[2018-07-23] MEDS: Insulin LISPRO 300 UNITS/3 ML VIAL SQ SCH ×4 (07:44→21:40)
[2018-07-23] MEDS: Gabapentin 300 MG CAPSULE PO SCH ×3 (07:47→20:54)
[2018-07-23] MEDS: predniSONE 10 MG TABLET PO SCH (07:47)
[2018-07-23] MEDS: Acetaminophen 325 MG TABLET PO PRN ×2 (07:47→20:24)
--- NOTE | 2018-07-23 16:13 | Electrocardiograph Report ---
[address] [address] Test Date: 2018-07-22 Pat Name: Thanh Smith Department: 109 Room: 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
--- NOTE | 2018-07-23 17:53 | Internal Med Progress Note ---
Hospitalist Progress Note - Encounter Date of Encounter: 07/23/18 Time of Encounter: 17:00 - Subjective Interval History: SUBJECTIVE: The patient is very drowsy. It is very difficult to make him answering very simple questions/following very simple commands. He is on 7 L/min nasal cannula oxygen. I could not hear him coughing or wheezing during my visit in his room. He skipped his breakfast and lunch today. OBJECTIVE: No distress is seen. Skin: Free of rash and discoloration. ENMT: Oral/pharyngeal mucosa is normal in appearance. Eyes: Sclera is white. There is no discharge from eyes. Respiratory: Normal breath sounds; no crackles or wheezes. CV: Heart is regular; no gallop or murmur. GI: Abdomen is soft and not tender. There is no palpable mass or visceromegaly. Neuro: There is no focal deficits. ADDITIONAL DATA: Chest x-ray shows developing right-sided pneumonia. ASSESSMENT AND PLAN: Pneumonia/acute hypoxic respiratory failure. We will continue IV vancomycin and IV Zosyn. He is immunocompromised due to his advanced rectal cancer; has underlying type 2 diabetes mellitus. Myasthenia gravis/chronic adrenal insufficiency. We will continue he is prednisone at 10 mg by mouth daily. Neurology is consulted. Weakness. It is secondary to problems mentioned above. Type 2 diabetes mellitus. Under fair control. We will continue diabetic diet, insulin Levemir and when necessary insulin Humalog. DISPOSITION: This patient most likely developed hypercapnia in addition to severe hypoxia. He is getting into hypercapnic,. After talking to his we decided not to start BiPAP treatments. The patient will be comfort measures/DO NOT INTUBATE. We will reevaluate situation tomorrow morning. 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 Current Visit: No Status: Chronic (7) Type 2 diabetes mellitus Current Visit: No Status: Chronic (8) Hypomagnesemia Current Visit: Yes Status: Resolved (9) Hypophosphatemia Current Visit: Yes Status: Resolved - Time Spent with Patient Total time spent is greater than 50% in coordination of care (as documented) at patient's floor/unit and/or counseling patient: 25 - 35 minutes Plan of Care Discussed with: patient Internal Medicine: Result - Labs CBC & Chem 7: 07/21/18 01:59 07/21/18 01:59 Labs: Cardiac Enzymes 07/22/18 Range/Units 23:18 Troponin I 0.03 (< 0.04) ng/mL Consult Discharge Plan - Plan Referrals: Cuco Wilson MD [Primary Care Provider] - (7) Type 2 diabetes mellitus Qualifiers: Diabetes mellitus termite technician insulin use: without snf use Diabetes mellitus complication status: without complication Qualified Code(s): E11.9 - Type 2 diabetes mellitus without complications
[2018-07-23] MEDS: GuaiFENesin Liq 200 MG/10 ML UDC PO PRN (18:17)
[2018-07-23] MEDS ORDERED: *HR* LORazepam 1 MG TABLET PO PRN (20:45)
[2018-07-23] MEDS: Insulin DETEMIR 100 UNIT/ML X5UNITS SQ SCH (21:52)
[2018-07-24] MEDS: GuaiFENesin Liq 200 MG/10 ML UDC PO PRN ×3 (00:20→17:39)
[2018-07-24] MEDS: Piperacillin/Tazobactam 3.375 GM in 0.9 % Sodium Chloride Mini Bag 100 ML IVPB SCH ×2 (00:27→08:20)
[2018-07-24] MEDS: Acetaminophen 325 MG TABLET PO PRN ×3 (01:54→20:05)
[2018-07-24] MEDS: levETIRAcetam 250 MG TABLET PO SCH ×2 (06:23→17:05)
[2018-07-24] MEDS: *HR* Heparin 5,000 UNIT/ML VIAL SQ SCH ×2 (06:26→16:26)
[2018-07-24] MEDS ORDERED: Aminoglycoside Consult 1 EACH MC ONE (08:03)
[2018-07-24] MEDS: Gabapentin 300 MG CAPSULE PO SCH ×3 (08:20→20:05)
[2018-07-24] MEDS: predniSONE 10 MG TABLET PO SCH (08:20)
[2018-07-24] MEDS: Insulin LISPRO 300 UNITS/3 ML VIAL SQ SCH ×4 (08:20→21:03)
--- NOTE | 2018-07-24 18:15 | Palliative - Consult Note ---
Date of Encounter: 07/24/18 Time of Encounter: 04:30 - Assessment and Plan (1) Goals of care, counseling/discussion Current Visit: Yes Status: Acute Assessment and plan: Met with pt, Naomi, son Jeremie. Pt also has a daughter Kelly. Discussed current medical condition, trajectory of illness, treatment options and overall poor prognosis. Patient stated he has accepted that he is not likely to recover from his underlying disease, he decided to de-escalate care. Pt was offered hospice, and was explained the different services and levels of hospice. is worried about the pt's needs at home as it may be overwhelming for her. However, the son Jeremie is taking some time off from work and will be home to help. Patient is not appropriate for general impatient hospice as he does not have symptoms that require inpatient management. Discussed the possibility of SNF placement, pt states he is a and would like to know about possible [facility] benefits. To be discussed with SW. Family decided that they would like to return home and keep pt at home for as long as possible. Referral to be made to [facility] in AM. (2) Dyspnea Current Visit: Yes Status: Acute Assessment and plan: Pt short of breath at rest will start Roxanol SL 5mg q6hrs Qualifiers: Dyspnea type: shortness of breath Qualified Code(s): R06.02 - Shortness of breath; R06.00 - Dyspnea, unspecified; R06.01 - Orthopnea (3) Acute respiratory failure with hypoxia Current Visit: Yes Status: Acute Assessment and plan: Due to a combination of pneumonia, lung mets and Myasthenia gravis/adrenal insufficiency ABX discontinued per family wishes. will continue prednisone 10 mg qd Pt refused BiPAP (4) Myasthenia gravis Current Visit: Yes Status: Chronic (5) 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 Current Visit: No Status: Chronic Palliative-CN HPI - Data of Consult Consult date: 07/24/18 Requesting Physician: Damon Donovan Primary Care Provider: Cuco Wilson MD - Consult Narrative Palliative Care/Comfort Measures: Palliative care Reason for consult: Hospice evaluation History of present illness: Mr. Smith is a 67 year old male that presented to the ER on 07/18/18 with 2 day history of weakness that has gradually been worsening. Of note patient has a history of myasthenia gravis, as well as metastatic rectal cancer with metastasis to brain, lung and liver. He also has hx of adrenal insufficiency on prednisone. In the ER a head CT was ordered due to concerns from the patient's family regarding possible brain bleed showed metastatic lesions but no mass effect or other acute intracranial abnormality. Hospital stay was complicated by acute respiratory distress due to pneumonia. Pt was treated with antibiotics with some improvement. however, pt remains very weak and hypoxic, requiring O2 10L on nc and intermittent BiPAP. Palliative care consult for hospice evaluation. CC: Damon Donovan - Time Spent with Patient Time: Total time spent is greater than 50% in coordination of care (as documented) at patient's floor/unit and/or counseling patient: Time with patient: 60 minutes Past Med Surg Social Fam HX - Past Medical History Medical history: cancer, diabetes, hyperlipidemia, other Additional medical history: Brain/Lung CA Psychiatric history: no psych history - Past Surgical History Surgical History: colectomy Additional surgical history: thymus removal, - Social History Smoking Status: Former smoker Smokeless Tobacco Status: No Alcohol use: none Drug use: none Medications and Allergies Citalopram Hydrobromide [Citalopram HBr] 40 mg PO DAILY 01/28/17 [History] Gabapentin [Neurontin] 300 mg PO TID 01/28/17 [History] Metformin HCl [Fortamet] 1,000 mg PO BID 01/28/17 [History] Multivit-Min/FA/Lycopen/Lutein [Centrum Silver Tablet] 1 each PO DAILY 01/28/17 [History] SitaGLIPtin [Januvia] 100 mg PO DAILY 01/28/17 [History] Ondansetron HCl [Zofran] 4 mg PO Q6H PRN #60 tablet 10/01/17 [Rx] Atorvastatin Calcium [Lipitor] 20 mg PO QPM 07/17/18 [History] Insulin Glargine,Hum.rec.anlog [Lantus Solostar] 16 unit SQ QPM 07/17/18 [History] diazePAM [Valium] 2 mg PO DAILY PRN 07/17/18 [History] predniSONE [PredniSONE] 10 mg PO DAILY 07/17/18 [History] Allergy/AdvReac Type Severity Reaction Status Date / Time azathioprine [From Imuran] AdvReac Fatigued Verified 07/08/18 09:58 - Constitutional Constitutional ROS PAL: decreased appetite, fatigue - EENT Eyes: no diplopia - Cardiovascular Cardiovascular ROS: dyspnea on exertion, no edema - Respiratory Respiratory: cough, dyspnea, chest congestion - Gastrointestinal Additional comments: negative - Genitourinary Additional comments: negative - Musculoskeletal Musculoskeletal ROS IM: muscle weakness, no myalgias - Integumentary ROS Integumentary: no bleeding lesions, no erythema - Neurological Neurological ROS: frequent falls, weakness, no focal weakness Palliative Care-Exam - Constitutional Vitals: Temp Pulse Resp BP Pulse Ox 98.9 F 90 32 96/63 93 07/24/18 15:39 07/24/18 15:39 07/24/18 15:39 07/24/18 15:39 07/24/18 15:39 General appearance: Present: average body habitus, cooperative - Head Head Exam: Present: atraumatic - Eye Eye exam: Present: EOMI Additional comments: R subconjunctival hemorrhage - ENT ENT exam: Present: mucous membranes moist - Neck Neck exam: Present: full ROM - Respiratory Respiratory exam: Present: accessory muscle use, prolonged expiratory phase. Absent: wheezes Additional comments: bilateral decreased breath sounds, RUQ crepitations. - Cardiovascular Cardiovascular exam: Present: RRR, +S1, +S2 Additional comments: peripheral pulses present. - GI/Abdominal Exam GI/Abdominal exam: Present: normal bowel sounds - Rectal Rectal Exam: Present: deferred - Extremities Exam Extremities exam: Present: full ROM, normal inspection. Absent: pedal edema - Neurological Exam Neurological exam: Present: alert, oriented X3 Internal Medicine - CN: Reslt - Labs CBC & Chem 7: 07/21/18 01:59 07/21/18 01:59 Consult Discharge Plan - Plan Referrals: Cuco Wilson MD [Primary Care Provider] - Palliative Quality Palliative Quality: Screen for Code Status: Yes, Screen for Goals of Care: Yes, Screen for Pain: Yes, If Pain Regimen Started, Initiate Bowel Regimen: NA, Screen for Nausea/Vomitting: Yes Code Status: 07/17/18 19:12 CODE [Resuscitation Status: Active] [RES] Stat Comment: Resuscitation Status: DNR-Comfort Care-Arrest CODE [Resuscitation Status: Active] [RES] Stat Comment: Resuscitation Status: [id number]
[2018-07-24] MEDS ORDERED: *HR* Morphine Soln 10 MG/5 ML UDC PO PRN (18:35)
--- NOTE | 2018-07-24 20:36 | Internal Med Progress Note ---
Hospitalist Progress Note - Encounter Date of Encounter: 07/24/18 Time of Encounter: 16:00 - Subjective Interval History: SUBJECTIVE: The patient is not drowsy today. He ate a small amount of breakfast and a small amount of lunch today. He did talk some with his and other family members. He knows, that he is days are numbered. He would rather like to in his home rather than in the hospital. He does not have any respiratory distress today; using supplemental oxygen at 10 L/min. He was not using oxygen at home. He does not have any significant chest pain/abdominal pain/other pain. OBJECTIVE: No distress is seen. He had fever of 100.0 last night. Skin: Free of rash and discoloration. ENMT: Oral/pharyngeal mucosa is normal in appearance. Eyes: Sclera is white. There is no discharge from eyes. Respiratory: Normal breath sounds; no crackles or wheezes. CV: Heart is regular; no gallop or murmur. GI: Abdomen is soft and not tender. There is no palpable mass or visceromegaly. Neuro: There is no focal deficits. ADDITIONAL DATA: Chest x-ray shows right-sided pneumonia. ASSESSMENT AND PLAN: Pneumonia/acute hypoxic respiratory failure. Getting worse. We will continue IV vancomycin and IV Zosyn. He is immunocompromised due to his advanced rectal cancer; has underlying type 2 diabetes mellitus. We will consult palliative ca re. Myasthenia gravis/chronic adrenal insufficiency. We will continue he is prednisone at 10 mg by mouth daily. Neurology is consulted. Weakness. It is secondary to problems mentioned above. Type 2 diabetes mellitus. Under fair control. We will continue diabetic diet, insulin Levemir and when necessary insulin Humalog. DISPOSITION: The patient is very close to comfort measures only. He knows, that he is days are numbered. He will be a hospice patient in the outpatient or inpatient. It will be decided after palliative care consult. I decided to stop further testing for this patient. - Exam Vitals: Temp Pulse Resp BP Pulse Ox 100.0 F H 90 36 128/76 91 07/24/18 19:31 07/24/18 15:39 07/24/18 19:31 07/24/18 19:31 07/24/18 19:31 Exam: xx - Assessment and Plan (1) Pneumonia Current Visit: Yes Status: Acute (2) Acute respiratory failure with hypoxia Current Visit: Yes Status: Acute (3) Myasthenia gravis Current Visit: Yes Status: Chronic (4) Adrenal insufficiency Current Visit: No Status: Chronic (5) Generalized weakness Current Visit: Yes Status: Acute (6) 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 Current Visit: No Status: Chronic (7) Type 2 diabetes mellitus Current Visit: No Status: Chronic (8) Hypomagnesemia Current Visit: Yes Status: Resolved (9) Hypophosphatemia Current Visit: Yes Status: Resolved - Time Spent with Patient Total time spent is greater than 50% in coordination of care (as documented) at patient's floor/unit and/or counseling patient: Greater than 35 minutes Plan of Care Discussed with: patient (and family) Internal Medicine: Result - Labs CBC & Chem 7: 07/21/18 01:59 07/21/18 01:59 Consult Discharge Plan - Plan Referrals: Cuco Wilson MD [Primary Care Provider] - (7) Type 2 diabetes mellitus Qualifiers: Diabetes mellitus terminal computer operator insulin use: without terminal computer operator use Diabetes mellitus complication status: without complication Qualified Code(s): E11.9 - Type 2 diabetes mellitus without complications
[2018-07-24] MEDS: Insulin DETEMIR 100 UNIT/ML X5UNITS SQ SCH (21:03)
[2018-07-25] MEDS: GuaiFENesin Liq 200 MG/10 ML UDC PO PRN (02:48)
[2018-07-25] MEDS: Acetaminophen 325 MG TABLET PO PRN ×2 (02:48→12:10)
[2018-07-25] MEDS: *HR* Heparin 5,000 UNIT/ML VIAL SQ SCH (05:46)
[2018-07-25] MEDS: levETIRAcetam 250 MG TABLET PO SCH (05:46)
[2018-07-25] MEDS: Insulin LISPRO 300 UNITS/3 ML VIAL SQ SCH ×2 (08:12→12:15)
[2018-07-25 11:43] VITALS: BP 143/80
[2018-07-25] MEDS: predniSONE 10 MG TABLET PO SCH (12:07)
[2018-07-25] MEDS: Gabapentin 300 MG CAPSULE PO SCH (12:07)
--- NOTE | 2018-07-25 14:30 | Palliative Progress Note ---
Date of Encounter: 07/25/18 Time of Encounter: 10:00 - Assessment and plan (1) Goals of care, counseling/discussion Current Visit: Yes Status: Acute Assessment and plan: and son present at the bedside, no changes to the GOC. Patient to be discharged home on home hospice. Discussed the challenges of him pt home. Pt lives in a trailer, and is not sure how to accommodate a hospital bed. is willing to get him home in his usual bed, and will make further changes with hospice once pt is home, if the care becomes too difficult. Also discussed that in case pt cannot be cared for at home, may be able to admit back to palliative care as a transition to SNF placement. Family agreeable with plan. Discussed with primary hospitalist, pt ready for discharge. (2) Dyspnea Current Visit: Yes Status: Acute Assessment and plan: On roxanol 5mg SL q6hrs Discussed the use of BiPAP with , she feels that it is not comfortable, and will only prolong the dying process. Patient is against any type of artificial life support. Ativan for anxiety. Senna for constipation. Prescriptions made for home. Qualifiers: Dyspnea type: shortness of breath Qualified Code(s): R06.02 - Shortness of breath; R06.00 - Dyspnea, unspecified; R06.01 - Orthopnea (3) Acute respiratory failure with hypoxia Current Visit: Yes Status: Acute Assessment and plan: Due to a combination of pneumonia, lung mets and Myasthenia gravis/adrenal insufficiency ABX discontinued per family wishes. will continue prednisone 10 mg qd for adrenal insufficiency Pt refused BiPAP (4) Myasthenia gravis Current Visit: Yes Status: Chronic (5) 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 Current Visit: No Status: Chronic - Time Spent With Patient Total time spent is greater than 50% in coordination of care (as documented) at patient's floor/unit and/or counseling patient: - Subjective Interval history: Patient was drowsy and sub-arousable this morning. As per present at the bedside, this is his morning baseline. He was tachypneic, but in no acute distress. - Constitutional Vitals: Abnormal lab results RBC 3.69 M/mcL (4.19-5.50) L 07/21/18 01:59 Hgb 11.7 g/dL (12.9-16.9) L 11/05/18 01:59 Hct 34.7 % (37.5-50.1) L 07/21/18 01:59 Lymphocytes # 0.5 K/mcL (0.6-4.6) L 07/20/18 04:33 Glucose 125 mg/dL (70-105) H 07/21/18 01:59 POC Glucose 61 mg/dL (70-99) L 07/25/18 08:05 Calcium 8.4 mg/dL (8.6-10.3) L 07/21/18 01:59 AST 41 Units/L (13-39) H 07/19/18 05:37 Alkaline Phosphatase 132 Units/L (34-104) H 07/19/18 05:37 Serum Total Protein 5.2 g/dL (6.4-8.9) L 07/19/18 05:37 Albumin 2.6 g/dL (3.5-5.7) L 07/19/18 05:37 Albumin/Globulin Ratio 1.0 (1.1-2.2) L 07/19/18 05:37 Ur Specific Moody 1.009 (1.010-1.025) L 07/17/18 17:55 Urine Urobilinogen 4.0 mg/dL (Normal) H 07/17/18 17:55 Ur Squamous Epith Cells Many per lpf (None-Few) H 07/17/18 17:55 Vancomycin Trough 15 mcg/mL (5-10) H 07/24/18 06:38 Exam: General appearance: Present: average body habitus, cooperative - Head Head Exam: Present: atraumatic - Eye Eye exam: Present: EOMI Additional comments: R subconjunctival hemorrhage - ENT ENT exam: Present: mucous membranes moist - Neck Neck exam: Present: full ROM - Respiratory Respiratory exam: Present: accessory muscle use, prolonged expiratory phase. Absent: wheezes Additional comments: bilateral decreased breath sounds, RUQ crepitations. - Cardiovascular Cardiovascular exam: Present: RRR, +S1, +S2 Additional comments: peripheral pulses present. - GI/Abdominal Exam GI/Abdominal exam: Present: normal bowel sounds - Rectal Rectal Exam: Present: deferred - Extremities Exam Extremities exam: Present: full ROM, normal inspection. Absent: pedal edema - Neurological Exam Neurological exam: Present: lethargic, minimally responsive Palliative Quality Palliative Quality: Screen for Code Status: Yes, Screen for Goals of Care: Yes, Screen for Pain: Yes, If Pain Regimen Started, Initiate Bowel Regimen: NA, Screen for Nausea/Vomitting: Yes Code Status: 07/17/18 19:12 CODE [Resuscitation Status: Active] [RES] Stat Comment: Resuscitation Status: DNR-Comfort Care-Arrest CODE [Resuscitation Status: Active] [RES] Stat Comment: Resuscitation Status: [id number] - Labs CBC & Chem 7: 07/21/18 01:59 07/21/18 01:59 Labs: Laboratory Results - last 24 hr 07/24/18 07/24/18 07/24/18 07:58 15:34 19:47 POC Glucose 100 H 156 H 268 H 07/25/18 08:05 POC Glucose 61 L Consult Discharge Plan - Plan Referrals: Cuco Wilson MD [Primary Care Provider] -
--- NOTE | 2018-07-25 15:39 | Event Note ---
Date of Encounter: 07/25/18 Time of Encounter: 15:36 notified by nurse that family is worried about taking pt home, as he looks much weaker today. Pt was seen and evaluated at the bedside, lethargic, keeping his eyes closed, nodding very weakly to questions. he denied pain, but displayed tachypnea and shallow breathing on 10 L NC. A/P Patient has symptoms of dyspnea that will require GIP admission for management. Pt at this time has a prognosis of hours to days. Will admit to GIP, if pt stabilizes, will discuss discharge planning with family on Saturday. agreeable.
--- NOTE | 2018-07-25 17:16 | Discharge Summary ---
Orders not resulted at time of discharge: Pending orders 07/21/18 01:59 Culture,Blood [] Stat Date of Encounter: 07/25/18 Time of Encounter: 17:14 - Discharge Diagnosis (1) Pneumonia Priority: Primary Status: Acute Qualifiers: Pneumonia type: due to unspecified organism Laterality: right Lung location: lower lobe of lung Qualified Code(s): J18.1 - Lobar pneumonia, unspecified organism (2) Acute respiratory failure with hypoxia Priority: Primary Status: Acute (3) Myasthenia gravis Priority: Secondary Status: Chronic (4) Adrenal insufficiency Priority: Secondary Status: Chronic (5) Generalized weakness Priority: Primary Status: Acute (6) 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 Priority: Secondary Status: Chronic (7) Type 2 diabetes mellitus Priority: Secondary Status: Chronic Qualifiers: Diabetes mellitus usp insulin use: without manager terminal use Diabetes mellitus complication status: without complication Qualified Code(s): E11.9 - Type 2 diabetes mellitus without complications (8) Hypomagnesemia Priority: Secondary Status: Resolved (9) Hypophosphatemia Priority: Secondary Status: Resolved Hospital course: HOSPITAL COURSE: The patient is a 67-year-old male. We admitted him with progressing dyspnea developing in the last few days preceding this admission. He has underlying metastatic rectal cancer, myasthenia gravis and chronic adrenal insufficiency. He is also treated for insulin-dependent type 2 diabetes mellitus. The patient was hypoxic at admission. He was not taking oxygen at home. We found him to have a developing right-sided pneumonia. We treated him with IV vancomycin/IV Zosyn. He got nebulizer treatments with DuoNeb. We continued his prednisone at 10 mg daily. This patient was getting progressively worse during this hospitalization. He is on 10 L/min nasal cannula oxygen today. After talking to him and his we decided for comfort measures. Palliative care has been consulted; they recommend discharge and admission to hospital hospice care. CONDITION AT DISCHARGE: The patient is very weak. He sleeps a lot. He is on high flow oxygen. Denies having pain. He does not show respiratory distress. Skin: Free of rash and discoloration. Respiratory: Normal breath sounds with no crackles and wheezes bilaterally. CV: Heart is regular with no gallop or murmur. GI: Abdomen is flat and soft with no palpable mass or visceromegaly. Neuro exam: There is no focal deficits. Normal speech, swallowing and gait. SEE DISCHARGE ORDERS/MEDICATIONS.. Discharge discussed with: patient, nurse, case management - Time Spent with Patient Total time spent providing and/or coordinating discharge services: Greater than 30 minutes (45 minutes..) - Discharge Medications Prescriptions: GuaiFENesin Liq [Robitussin Liq] 200 mg PO Q6HR 3 Days #12 tab LORazepam [Ativan] 0.5 mg PO Q6HR 3 Days #12 tablet Morphine Oral CONC [Roxanol] 0.25 ml PO Q6H PRN 4 Days #30 ml PRN Reason: Pain Sennosides [Senna] 8.6 mg PO DAILY 3 Days #3 tablet Home Medications: Citalopram Hydrobromide [Citalopram HBr] 40 mg PO DAILY 01/28/17 [History] Gabapentin [Neurontin] 300 mg PO TID 01/28/17 [History] predniSONE [PredniSONE] 10 mg PO DAILY 07/17/18 [History] Dextrose 50 % in Water (Syg) [Dextrose 50% (Syg)] 25 ml IVP AD PRN syringe 07/25/18 [Rx] Dextrose Gel [Gluctose] 15 gm PO ONCE PRN tube 07/25/18 [Rx] Dextrose Gel [Gluctose] 30 gm PO ONCE PRN tube 07/25/18 [Rx] Glucagon, Human Recombinant [Glucagen] 1 mg IM ONCE PRN vial 07/25/18 [Rx] GuaiFENesin Liq [Robitussin Liq] 200 mg PO Q6HR 3 Days #12 tab 07/25/18 [Rx] Insulin DETEMIR [Levemir] 16 unit SQ HS [id number] 07/25/18 [Rx] Insulin LISPRO [HumaLOG] 0 units SQ HS vial 07/25/18 [Rx] Insulin LISPRO [HumaLOG] 0 units SQ TIDAC vial 07/25/18 [Rx] LORazepam [Ativan] 0.5 mg PO Q6HR 3 Days #12 tablet 07/25/18 [Rx] Morphine Oral CONC [Roxanol] 0.25 ml PO Q6H PRN 4 Days #30 ml 07/25/18 [Rx] Sennosides [Senna] 8.6 mg PO DAILY 3 Days #3 tablet 07/25/18 [Rx] diazePAM [Valium] 2 mg PO BID #0 07/25/18 [Rx] levETIRAcetam [Keppra] 500 mg PO Q12HR tablet 07/25/18 [Rx] Allergies/Adverse Reactions: Allergy/AdvReac Type Severity Reaction Status Date / Time azathioprine [From Imuran] AdvReac Fatigued Verified 07/08/18 09:58 Date of admission: 07/19/18 17:35 Primary care physician: Cuco Wilson MD Consults: 07/17/18 22:55 Consult to Nutrition [CONS] Routine Comment: Consulting Provider: NUTRITION Reason for Dietary Consult: MST Score Consult to Folder Gluer Operator [CONS] Routine Reason for SW Consult: D/C plans 07/18/18 03:16 Consult to Physical Therapy [CONS] Routine Comment: Evaluate, develop and implement POC Reason for Consult: Weakness, falls at home Does patient have active BEDREST order?: No Is patient medically & hemodynamically stable?: Yes 07/18/18 03:21 Consult to Neurology [CONS] Routine Consulting Provider: Neurology [facility] Reason for Consult: History of Myesthenia Gravis, weakness for last 3 days Call Completed: No 07/24/18 15:52 Consult to Palliative Care [CONS] Routine Comment: Consulting Provider: [facility] Reason for Consult: Palliative care needed.. Time Notified: 15:50 Call Completed: Yes Discharging clinician: Damon Donovan Anticipated date of discharge: 07/25/18 - Constitutional Vitals: Temp Pulse Resp BP Pulse Ox 101.7 F H 123 24 143/80 84 07/25/18 11:37 07/25/18 11:37 07/25/18 11:37 07/25/18 11:37 07/25/18 11:37 General appearance: Present: no acute distress, answers questions appropriately Exam: xx - Patient Status Disposition: Hospice - Medical Facility Condition: Serious Functional capacity at discharge: bed bound Overall status at discharge: other (THE PATIENT IS EXPECTED TO SOON..) - Discharge Instructions Follow Up With: Cuco Wilson MD [Primary Care Provider] - - Diet and Activity Activity: other (BR) Diet: diabetic diet - VTE Deep Vein Thrombosis/Pulmonary Embolism Present on Admission: No
== END 2018-07-25 18:02 | disposition hospice, inpatient (51) | DRG 871 ==
LOC: EMEROOARM 15:46 → 3NENU 15:46 → SUATTDRO 22:05 → 3NENU 22:26 → SUATTDRO 07-19 17:35 → 2ANU 07-20 18:40
PROVIDERS: ADMIT Internal Medicine; ATTEND Internal Medicine